=== PATIENT | female | born 1950 | race Caucasian/White ===

== ENCOUNTER 2024-04-30 18:13 | Inpatient (IN) | payer MEDICARE, BC, SELFPAY ==
[2024-04-30] VITALS (8 sets, daily range): BP systolic 98–133; BP diastolic 60–73; BMI 36.2; BMI 34.9
[2024-04-30] MEDS: MORPHINE SULFATE 4 MG IV ×2 (13:15→15:56)
[2024-04-30] MEDS: NSS 1000 IV ×2 (13:15→20:09)
[2024-04-30] MEDS: ZOFRAN 4 MG IV (13:15)
--- NOTE | 2024-04-30 13:18 | ED.GENMED ---
History of Present Illness
<AMRIT Zaragoza - Last Filed: 04/30/24 17:23>
General
Chief Complaint: Abdominal Pain
Source: patient and spouse
Exam Limitations: none
Time Seen by Provider: 04/30/24 12:53
Nursing documentation reviewed up to this point in time: agreed with
History of Present Illness
History of Present Illness:
Patient is a 74-year-old female who presents ER for evaluation abdominal pain and nausea vomiting. Patient reports she was awoken at 3 AM with abdominal pain. She has had persistent abdominal pain is vomited about 6�7 times.
She denies any diarrhea. She last moved her bowels yesterday.
She denies any associated fever or chills.
She has prior appendectomy in addition she had surgery on her muscles of her abdomen by plastic surgery done 3 years ago. No prior bowel surgery.
Past History
<AMRIT Zaragoza - Last Filed: 04/30/24 17:23>
Past History
ED Past Medical History: Asthma, Hypercholesterolemia, Psychiatric and Other (clarice, pud, ULCers)
ED Past Surgical History: Appendectomy, Gynecological (Tubel) and Other (hernia repair, 'tummy tuck')
Social History
Tobacco: Former smoker
Alcohol: Daily (Martini)
Drug: None
Personal:
Living: with family
Review of Systems
<AMRIT Zaragoza - Last Filed: 04/30/24 17:23>
Review of Systems
Allergies reviewed?: Yes
All Other Systems: ROS reviewed and negative except as documented in HPI and ROS
Constitutional: Reports no symptoms; Denies fever, fatigue or chills
Respiratory: Reports no symptoms
Cardiac: Reports no symptoms
ABD/GI: Reports abdominal pain, nausea and vomiting
: Reports no symptoms
Musculoskeletal: Reports no symptoms
Skin: Reports no symptoms
Neurological: Reports no symptoms
Psychiatric: Reports no symptoms
Phy Exam
<AMRIT Zaragoza - Last Filed: 04/30/24 17:23>
General Physical Exam
General Presentation: no apparent distress
General age: appears stated age
General Skin: warm and dry
General Habitus: normal
General Mental: alert
General Hydration: appears well hydrated
Cardiovascular Exam
Cardiovascular Exam: regular rate/rhythm, no murmur and normal peripheral pulses
Pulmonary Exam
Pulmonary Exam: lungs clear and no respiratory distress
Gastrointestinal Exam
Gastrointestinal Exam: soft and other (Abdomen appears firm distended on exam tender throughout)
Neurological Exam
Neurological Exam: alert and oriented x3
Musculoskeletal Exam
Musculoskeletal Exam: full ROM
Skin Exam
Skin Exam: normal color and warm/dry
Psychiatric Exam
Psychiatric Exam: normal mood/affect
Course
<AMRIT Zaragoza - Last Filed: 04/30/24 17:23>
Orders/Labs/Results
Orders:
Orders
04/30/24 12:48
IV Insert/Care/Rem.- Treatment PRN
Urinalysis Reflex To Culture Urgent
Date Specimen was Collected: 04/30/24
Time Specimen was Collected: 12:49
04/30/24 12:52
Basic Metabolic Panel Urgent
Complete Blood Count/With Diff Urgent
Lipase Urgent
04/30/24 13:09
CT Abd/Pel (IV only)-DH only Urgent
Comment:
Reason For Exam: sudden abd pain firm distended abdomen with n/v
Morphine Sulfate 4 mg IV NOW STA
04/30/24 13:10
0.9% Sodium Chloride 1000 ml [Nss] 1,000 ml IV BOLUS
Ondansetron Injectable [Zofran] 4 mg IV NOW STA
04/30/24 13:33
Comprehensive Metabolic Panel Stat
04/30/24 15:50
Morphine Sulfate 4 mg IV NOW STA
04/30/24 16:35
MRI Abdomen [MR Abdomen W/o & W Contrast] Routine
Comment:
Reason For Exam: with ERCP
Recent pill cam endoscopy?: No
Abnormal Lab Results
04/30/24 04/30/24
12:52 13:33
Absolute Lymphs (auto) 0.5 L 10^3/uL
(1.2-3.4)
Absolute Monos (auto) 0.0 L 10^3/uL
(0.1-0.6)
Neutrophils % 86.6 H %
(42.2-75.2)
Lymphocytes % 8.7 L %
(20.5-51.1)
Monocytes % 0.4 L %
(1.7-9.3)
BUN 21 H mg/dl 20 H mg/dl
(7-17) (7-17)
Glucose 132 H mg/dl 118 H mg/dl
(70-99) (70-99)
Total Bilirubin 2.5 H mg/dl
(0.2-1.3)
AST 1180 H* U/L
(14-36)
ALT 610 H* U/L
(0-35)
Alkaline Phosphatase 212 H U/L
(38-126)
Lipase > 4000 H* U/L
(23-300)
04/30/24 12:52
04/30/24 13:33
Vital Signs
Initial and Last Documented VS:
Initial Vital Signs
Temp Pulse Resp Pulse Ox
97.8 F 82 15 94
04/30/24 12:50 04/30/24 12:50 04/30/24 12:50 04/30/24 12:50
Last Documented Vital Signs
Temp Pulse Resp BP Pulse Ox
97.8 F 82 29 133/73 95
04/30/24 12:50 04/30/24 13:00 04/30/24 13:00 04/30/24 13:00 04/30/24 13:00
Video Tape Editor consulted with Physician
Video Tape Editor consulted with physician?: Yes
Name of Physician Consulted: Paul
<Derick Miller MD - Last Filed: 04/30/24 15:29>
Orders/Labs/Results
Orders:
Orders
04/30/24 12:48
IV Insert/Care/Rem.- Treatment PRN
Urinalysis Reflex To Culture Urgent
Date Specimen was Collected: 04/30/24
Time Specimen was Collected: 12:49
04/30/24 12:52
Basic Metabolic Panel Urgent
Complete Blood Count/With Diff Urgent
Lipase Urgent
04/30/24 13:09
CT Abd/Pel (IV only)-DH only Urgent
Comment:
Reason For Exam: sudden abd pain firm distended abdomen with n/v
Morphine Sulfate 4 mg IV NOW STA
04/30/24 13:10
0.9% Sodium Chloride 1000 ml [Nss] 1,000 ml IV BOLUS
Ondansetron Injectable [Zofran] 4 mg IV NOW STA
04/30/24 13:33
Comprehensive Metabolic Panel Stat
04/30/24 15:50
Morphine Sulfate 4 mg IV NOW STA
04/30/24 16:35
MRI Abdomen [MR Abdomen W/o & W Contrast] Routine
Comment:
Reason For Exam: with ERCP
Recent pill cam endoscopy?: No
Abnormal Lab Results
04/30/24 04/30/24
12:52 13:33
Absolute Lymphs (auto) 0.5 L 10^3/uL
(1.2-3.4)
Absolute Monos (auto) 0.0 L 10^3/uL
(0.1-0.6)
Neutrophils % 86.6 H %
(42.2-75.2)
Lymphocytes % 8.7 L %
(20.5-51.1)
Monocytes % 0.4 L %
(1.7-9.3)
BUN 21 H mg/dl 20 H mg/dl
(7-17) (7-17)
Glucose 132 H mg/dl 118 H mg/dl
(70-99) (70-99)
Total Bilirubin 2.5 H mg/dl
(0.2-1.3)
AST 1180 H* U/L
(14-36)
ALT 610 H* U/L
(0-35)
Alkaline Phosphatase 212 H U/L
(38-126)
Lipase > 4000 H* U/L
(23-300)
04/30/24 12:52
04/30/24 13:33
Vital Signs
Initial and Last Documented VS:
Initial Vital Signs
Temp Pulse Resp Pulse Ox
97.8 F 82 15 94
04/30/24 12:50 04/30/24 12:50 04/30/24 12:50 04/30/24 12:50
Last Documented Vital Signs
Temp Pulse Resp BP Pulse Ox
97.8 F 82 29 133/73 95
04/30/24 12:50 04/30/24 13:00 04/30/24 13:00 04/30/24 13:00 04/30/24 13:00
<AMRIT Zaragoza - Last Filed: 04/30/24 17:23>
MDM/Problems Addressed
Differential Diagnosis Includes:
Not limited to biliary colic pancreatitis diverticulitis
MDM/Problems Addressed:
Patient is a 73-year-old female who presented with nausea vomiting abdominal pain since 3 AM. Patient's abdomen is very firm tender at the upper abdomen afebrile. Patient's white count is normal hemoglobin stable lipase however elevated greater
than 4000 with elevated LFTs. CAT scan shows right upper quadrant phonatory changes probable pancreatitis cannot entirely exclude duodenitis. pt was medicated for pain given fluids nausea medicine. Stable vital signs patient mid to the hospital
service. Patient evaluated the ED physician
<AMRIT Zaragoza - Last Filed: 04/30/24 17:23>
*Radiology
Radiology exam reviewed: radiology read reviewed
*Pulse Oximetry
Patient hypoxic: no
*Critical Care Note
Total Time (30-74mins, 75-104mins- exclusive of procedures): Not Applicable
ED Attending Note
<AMRIT Zaragoza - Last Filed: 04/30/24 17:23>
-
Portions of this chart may have been created with voice recognition software.� Occasional wrong word or��sound alike� substitutions may have occurred due to the inherent limitations of voice recognition software.
<Derick Mliler MD - Last Filed: 04/30/24 15:29>
ED Attending Note
Patient seen and examined by attending physician: Yes
I performed the substantive portion of visit, reviewed & personally made and approve the management plan that is documented in note by myself or DUDLEY.: Yes
ED Attending Note:
74-year-old female sudden onset of abdominal pain about 3 AM. Some nausea and vomiting. Some back pain. No history of same. History of sepsis secondary to hernia surgery. No fever.
Patient with high cholesterol and triglycerides. Patient does have her gallbladder. Patient drinks a martini per day.
On exam patient is nontoxic-appearing but uncomfortable. She is warm and dry. Vital signs stable. Regular rate and rhythm. Lungs clear and equal. Abdomen mildly distended. Decreased breath sounds diffusely. Diffuse tenderness mostly in the
upper quadrants.
Lipase greater than 4000. CT scan pending. Currently has pancreatitis all of the above etiologies are in the differential including triglycerides, common duct stone, alcohol related.
1530.... Multiple attempts to get over to CAT scan. GI was already consulted.
Discharge Plan
Departure
Patient Disposition: Admit
Date of Disposition: 04/30/24
Time of Disposition: 17:19
Admit to doctor: hospitliast
Presentation/result/management discussed w/ accepting MD/DO: Hospitalist
Patient with high blood pressure during this ER visit?: No
Condition: Fair
Covid-19: Not Applicable
Discharge Problem:
Acute pancreatitis
Prescriptions:
No Action
rabeprazole [AcipHex] 20 MG tablet,delayed release (DR/EC)
20 mg PO DAILY
rosuvastatin 10 MG tablet
10 mg PO HS
ascorbic acid (vitamin C) [Vitamin C] 500 MG tablet
0.5 tab PO DAILY
lorazepam 1 MG tablet
1 mg PO TIDPRN PRN (Reason: sleep)
bupropion HCl 300 MG tablet extended release 24 hr
300 mg PO DAILY
cholecalciferol (vitamin D3) 2,000 UNITS tablet
2,000 units PO DAILY
biotin 1 MG capsule
1 mg PO DAILY
PreserVision AREDS-2 1 EACH capsule
1 ea PO DAILY
L.acidoph, paracasei,B. lactis 1 EACH capsule
1 ea PO DAILY
prednisolone acetate 1 % Drops,Suspension
1 drp LEFT EYE DAILY
dorzolamide-timolol 22.3-6.8 mg/mL Drops
1 drp BOTH EYES BID
Referrals:
Ivan Biswas MD [Family Provider] -
Interventions
Interventions:
*Risk Screen - Suicide Last Done: 04/30/24 12:50
*General Assessment Last Done: 04/30/24 12:50
*Neglect/Abuse Screening Last Done: 04/30/24 12:50
ED- Fall Risk Assessment Last Done: 04/30/24 12:55
[place]-[facility] Assessment Last Done: 04/30/24 12:55
Discharge Date and Time
Print Language: BOLIVIAN
[2024-04-30 13:23] LABS: Blood Urea Nitrogen 21 mg/dl (7-17); Calcium 9.7 mg/dl (8.4-10.2); Carbon Dioxide 25 mmol/L (22-30); Chloride 102 mmol/L (98-107); Estimated Creatinine Clearance 97 ml/min; Glucose 132 mg/dl (70-99); Sodium 142 mmol/L (135-145); eGFR > 60.00
[2024-04-30 13:29] LABS: Lipase > 4000 U/L (23-300)
[2024-04-30 13:39] LABS: Hematocrit 42.9 % (37.0-47.0); Hemoglobin 14.3 g/dL (12.0-16.0); Mean Corp Hgb Conc. 33.3 g/dL (33.0-37.0); Mean Corpuscular Hgb 30.4 pg (27.0-31.0); Mean Corpuscular Volume 91.3 fL (81.0-99.0); Mean Platelet Volume 9.6 fL (7.4-10.4); Platelet Count 198 10^3/uL (130-400); Red Cell Dist. Width 13.5 % (11.5-14.5); White Blood Cell Count 5.5 10^3/uL (4.8-10.8)
[2024-04-30 14:14] LABS: ALT (SGPT) 610 U/L (0-35); AST (SGOT) 1180 U/L (14-36); Albumin 4.4 g/dl (3.5-5.0); Alkaline Phosphatase 212 U/L (38-126); Blood Urea Nitrogen 20 mg/dl (7-17); Calcium 9.3 mg/dl (8.4-10.2); Carbon Dioxide 23 mmol/L (22-30); Chloride 104 mmol/L (98-107); Estimated Creatinine Clearance 97 ml/min; Glucose 118 mg/dl (70-99); Potassium 3.5 mmol/L (3.5-5.1); Sodium 144 mmol/L (135-145); Total Bilirubin 2.5 mg/dl (0.2-1.3); eGFR > 60.00
[2024-04-30 15:06] LABS: % Basophils 0.7 % (0-2); % Eosinophils 3.4 % (0-6); % Immature Granulocytes 0.2 % (0-0.5); % Lymphocytes 8.7 % (20.5-51.1); % Monocytes 0.4 % (1.7-9.3); % Neutrophils 86.6 % (42.2-75.2); Absolute Eosinophils 0.2 10^3/uL (0-0.7); Absolute Lymphocytes 0.5 10^3/uL (1.2-3.4); Absolute Neutrophils 4.8 10^3/uL (1.4-6.5); Nucleated Red Blood Cells % 0 %
--- NOTE | 2024-04-30 15:50 | CON.GI ---
Addendum entered and electronically signed by Brennan Sahni MD 04/30/24 17:55:
I saw and examined the patient.
The PA's note was reviewed and I agree with the note.
Comment:
74 year old female with recent shoulder surgery and daily NSAID use (for past 1.5 month) who p/w abdominal pain with associated nausea/vomiting and lipase >4000.
Impression / Rec:
1. Abdominal pain/nausea/vomiting - lipase > 4000. CT showed probable pancreatitis, rounded fluid attenuating lesions in the duodenum which represent possible duodenal diverticula versus contained perforation. The CT reviewed by me. Prior CT
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 LFT elevated in mixed pattern.
Although I suspect she likely has acute pancreatitis, duodenal perforation cannot be excluded given her significant NSAID hx. Agree with MRI/MRCP for further eval, should also have surgery on board. PPI.
Original Note:
Consultation
-
Date/Time Consultation Requested: 04/30/24 1500
Date/Time Consultation Performed: 04/30/24 1600
Requesting Provider: AMRIT Peguero
Performing Provider: AMRIT Lewis
Reason for Consultation: elevated LFT's and lipase/ abdominal pain
Medical History
Chief Complaint / HPI
Chief Complaint: abdominal pain with nasuea and vomiting
History of Present Illness:
Pt is a 74yo with hx obesity, RHONDA, asthma, hypercholesterolemia, PUD, IBS, colon polyps, prior appe, hernia repair, abdominoplasty with recent multiple surgeries for retinal detachment and shoulder surgery on multiple Ibuprofen per day with onset
of abdominal pain with nausea and vomiting bile . On admission noted with bili 2.5, AST 1180, ALT 610, alk phos 212 and lipase >4000.
In reviewing with patient and spouse noted with onset of severe pain at 3 AM 04/30. She denies hx similar pain. No recent wt loss or hx GPL2 use. No anticoagulation use prior to admission. She otherwise has chronic GERD on Aciphex daily denies
dysphagia, diarrhea, constipation, or rectal bleeding.
Past Medical History
Past Medical History: Asthma, Hypercholesterolemia and Other (RHONDA, PUD, ulcers, obesity, colon polyps, IBS)
Past Surgical History: Appendectomy, Gynecological (tubal ), Orthopedic (recent shoulder surgery ) and Other (tummy tuck, ventral hernia repair, recent 7 surgeries for retinal detachment)
Social History
Tobacco: Former Smoker (quit 1998)
Alcohol: Occasional (social 2 drinks every other day )
Drug: None
Personal:
Living: With Family
Employment: Retired
Family History
Family History: Other (no family hx colon Ca or polyps )
Allergies / Home Medications
Allergy/AdvReac Type Severity Reaction Status Date / Time
levofloxacin [From Levaquin] AdvReac Unknown Verified 05/04/23 11:45
shrimp Allergy Anaphylaxis Uncoded 05/04/23 11:45
�Medication �Instructions �Recorded
rabeprazole 20 mg tablet,delayed 20 mg PO DAILY Gastrointestinal 11/04/10
release (AcipHex) issue
rosuvastatin 10 mg tablet 10 mg PO HS High cholesterol 11/04/10
L.acidoph, paracasei,B. lactis 10 1 ea PO DAILY Supplement 08/03/20
billion cell capsule
ascorbic acid (vitamin C) 500 mg 0.5 tab PO DAILY Supplement 08/03/20
tablet (Vitamin C)
biotin 1 mg capsule 1 mg PO DAILY Supplement 08/03/20
bupropion HCl 300 mg 24 hr tablet, 300 mg PO DAILY Mental 08/03/20
extended release Health/Anxiety
cholecalciferol (vitamin D3) 50 2,000 units PO DAILY Supplement 08/03/20
mcg (2,000 unit) tablet
lorazepam 1 mg tablet 1 mg PO TIDPRN PRN sleep 08/03/20
vit C 250 mg-vit E 90 mg-zinc 40 1 ea PO DAILY Supplement 08/03/20
mg-copper 1 [id number]
capsule (PreserVision AREDS-2)
dorzolamide 22.3 mg-timolol 6.8 1 drp BOTH EYES BID Eye Condition 04/30/24
mg/mL eye drops
prednisolone acetate 1 % eye 1 drp LEFT EYE DAILY Eye Condition 04/30/24
drops,suspension
Review of Systems
-
History Source: Patient and Family
Constitutional: Reports Weight Gain (with recent sedentary lifestyle with shoulder surgery )
EENT: Reports No Symptoms
Respiratory: Reports Trouble Breathing (with steps )
Abdomen/GI: Reports Abdominal Pain, Nausea and Vomiting
: Reports No Symptoms
Musculoskeletal: Reports Other (recent pain with shoulder surgery )
Skin: Reports No Symptoms
Neurological: Reports Weakness
Endocrine: Reports No Symptoms
Hematologic/Lymphatic: Reports No Symptoms
Vital Signs
Temp Pulse Resp BP Pulse Ox
97.8 F 82 29 133/73 95
04/30/24 12:50 04/30/24 13:00 04/30/24 13:00 04/30/24 13:00 04/30/24 13:00
Physical Exam
Exam
General: Well Developed and Well Nourished
HEENT: Normocephalic and Other
Respiratory: Clear
Cardiac: Regular Rhythm
GI: Soft, Non Distended and Tender (diffuse worse epigastric area )
Musculoskeletal: No Clubbing and No Cyanosis
Skin: Warm and Dry
Neuro: Awake, Alert and AO x 3
Psych: Calm
Results
WBC 5.5 10^3/uL (4.8-10.8) 04/30/24 12:52
Hgb 14.3 g/dL (12.0-16.0) 04/30/24 12:52
Hct 42.9 % (37.0-47.0) 04/30/24 12:52
MCV 91.3 fL (81.0-99.0) 04/30/24 12:52
Plt Count 198 10^3/uL (130-400) 04/30/24 12:52
Absolute Neuts (auto) 4.8 10^3/uL (1.4-6.5) 04/30/24 12:52
Sodium 144 mmol/L (135-145) 04/30/24 13:33
Potassium 3.5 mmol/L (3.5-5.1) 04/30/24 13:33
Chloride 104 mmol/L (98-107) 04/30/24 13:33
Carbon Dioxide 23 mmol/L (22-30) 04/30/24 13:33
BUN 20 mg/dl (7-17) H 04/30/24 13:33
Creatinine 0.6 mg/dL (0.6-1.0) 04/30/24 13:33
Calcium 9.3 mg/dl (8.4-10.2) 04/30/24 13:33
Total Bilirubin Cancelled 04/30/24 13:39
AST Cancelled 04/30/24 13:39
ALT Cancelled 04/30/24 13:39
Alkaline Phosphatase Cancelled 04/30/24 13:39
Lipase > 4000 U/L (23-300) H* 04/30/24 12:52
Diagnostic Image Results:
Prior GI Procedures:
EGD: hx EGD 8 years ago with PUD last 2 years ago for GERD with Dr. Cisneros in [facility]
Colonoscopy: last 2 years with polyps
Assessment / Plan
-
Pt is a 74yo with hx obesity, RHONDA, asthma, hypercholesterolemia, PUD, IBS, colon polyps, prior appe, hernia repair, abdominoplasty with recent multiple surgeries for retinal detachment and shoulder surgery on multiple Ibuprofen per day with onset
of abdominal pain with nausea and vomiting bile . On admission noted with bili 2.5, AST 1180, ALT 610, alk phos 212 and lipase >4000.
-epigastric abdominal pain
-marked elevated LFT's and lipase
-increased NSAID use with recent shoulder surgery
other med Problems:
-hx PUD
-hx GERD on Aciphex prior to admission
-colon polyps
-appe
-hernia repair
-abdominoplasty
-retinal detachment with recent multiple surgeries without last year
-RHONDA
-asthma
-hypercholesterolemia
PLAN:
etiology of abdominal pain related to biliary/pancreatic etiology CBD stone, pancreatitis, ulcer related with increased NSAID use vs other
CT pending await reading
will check MRI with MRCP if + may need ERCP
s/p IV bolus given in ER-- will need aggressive iVF replacement
trend labs
cont PPI with hx GERD
NPO
pain control
NSAID avoidance
family updated
-
-
Thank you for consultation and allowing me to participate in the patient's care. Please call the [facility] GI physician during the after hours with any questions or concerns.
--- NOTE | 2024-04-30 17:47 | HPS.HSE ---
Family Physician
-
Family Physician: Ivan Biswas MD
Chief Complaint
-
abdominal pain
History of Present Illness
74-year-old female past medical history of asthma, obstructive sleep apnea, hypercholesteremia, peptic ulcer disease, anxiety, IBS, colon polyps, retinal detachment, presenting with epigastric abdominal pain and nausea and episode of vomiting with
bile starting today. Pain radiates to her back. She has chills but no fever. She recently had rotator cuff surgery and has been taking 10 Advil's a day. She drinks 2 drinks of alcohol per day. She is a former smoker. She denies ever having
pancreatitis before or any gallbladder problems. She had pain like this when she had peptic ulcer previously.
Medical History
Past Medical History
Past Medical History: Reports Other (asthma, obstructive sleep apnea, hypercholesteremia, peptic ulcer disease, anxiety, IBS, colon polyps, retinal detachment)
Past Surgical History: Reports Other (Appendectomy, Gynecological (tubal ), Orthopedic (recent shoulder surgery ) and Other (tummy tuck, ventral hernia repair, recent 7 surgeries for retinal detachment))
Social History
Tobacco: Former Smoker
Alcohol: Daily
Drug: None
Family History
Family History: Not pertinent
Allergies / Home Medications
Allergies reflects when Allergies were last updated in [facility].
Home Medications with original date entered in [facility]
Allergy/Medication List:
Allergies
Allergy/AdvReac Type Severity Reaction Status Date / Time
levofloxacin [From Levaquin] AdvReac Unknown Verified 05/04/23 11:45
shrimp Allergy Anaphylaxis Uncoded 05/04/23 11:45
Home Medications
rabeprazole 20 mg tablet,delayed release (AcipHex) 20 mg PO DAILY Gastrointestinal issue 11/04/10
rosuvastatin 10 mg tablet 10 mg PO HS High cholesterol 11/04/10
L.acidoph, paracasei,B. lactis 10 billion cell capsule 1 ea PO DAILY Supplement 08/03/20
ascorbic acid (vitamin C) 500 mg tablet (Vitamin C) 0.5 tab PO DAILY Supplement 08/03/20
biotin 1 mg capsule 1 mg PO DAILY Supplement 08/03/20
bupropion HCl 300 mg 24 hr tablet, extended release 300 mg PO DAILY Mental Health/Anxiety 08/03/20
cholecalciferol (vitamin D3) 50 mcg (2,000 unit) tablet 2,000 units PO DAILY Supplement 08/03/20
lorazepam 1 mg tablet 1 mg PO TIDPRN PRN sleep 08/03/20
vit C 250 mg-vit E 90 mg-zinc 40 mg-copper 1 [id number] capsule (PreserVision AREDS-2) 1 ea PO DAILY Supplement 08/03/20
dorzolamide 22.3 mg-timolol 6.8 mg/mL eye drops 1 drp BOTH EYES BID Eye Condition 04/30/24
prednisolone acetate 1 % eye drops,suspension 1 drp LEFT EYE DAILY Eye Condition 04/30/24
Review of Systems
-
History Source: Patient
Constitutional: Reports No Symptoms
EENT: Reports No Symptoms
Respiratory: Reports No Symptoms
Cardiac: Reports No Symptoms
Abdomen/GI: Reports See HPI
: Reports No Symptoms
Musculoskeletal: Reports No Symptoms
Skin: Reports No Symptoms
Neurological: Reports No Symptoms
Endocrine: Reports No Symptoms
Hematologic/Lymphatic: Reports No Symptoms
Psych: Reports No Symptoms
Physical Exam
Vital Signs
Vital Signs
Temp Pulse Resp BP Pulse Ox
97.8 F 82 29 133/73 95
04/30/24 12:50 04/30/24 13:00 04/30/24 13:00 04/30/24 13:00 04/30/24 13:00
Physical Exam
General: Well Developed, Well Nourished and No Apparent Distress
HEENT: NormoCephalic, Moist mucous membranes and Atraumatic
Respiratory: Clear
Cardiac: S1/S2 and Regular Rhythm; No Murmur or Rub
GI: Soft, Normal Bowel Sounds, Tender and Distended; No Organomegaly
Rectal: Deferred by Provider
Musculoskeletal: No Clubbing, No Cyanosis and No Edema
Skin: No Rash
Neuro: Nonfocal/grossly intact
Laboratory Results
-
04/30/24 12:52
04/30/24 13:33
Laboratory Results
Total Bilirubin Cancelled 04/30/24 13:39
AST Cancelled 04/30/24 13:39
ALT Cancelled 04/30/24 13:39
Alkaline Phosphatase Cancelled 04/30/24 13:39
Lipase > 4000 U/L (23-300) H* 04/30/24 12:52
Data Reviewed
-
Lab Data: Labs Reviewed by me
Old Records: Reviewed
Impression/Plan
-
IMPRESSION:
PLAN:
# Likely biliary pancreatitis versus peptic ulcer disease secondary to NSAIDs
# Transaminitis
# History of GERD/peptic ulcer disease
-Lipase 4000
-CT abdomen pelvis shows right upper quadrant inflammatory changes, probable pancreatitis, cannot exclude duodenitis
-N.p.o.
-IV fluids
-Protonix 40 twice daily
-Hold NSAIDs
-Check MRI/MRCP
-Pain control with Dilaudid as needed
Asthma
Obstructive sleep apnea
-Continue CPAP
Hypercholesterolemia
-Hold statin
IBS
Anxiety
-Continue bupropion
-Continue Ativan
Colon polyps
Retinal detachment status post surgeries
Full code
DVT prophylaxis heparin
N.p.o.
--- NOTE | 2024-04-30 18:27 | W.PN.UPDATE ---
Update Note
Progress Note Update
General surgery consulted by hospitalist at 6:20pm re: c/f 'duodenal perf' on CT based on reported TTP/'rigidity' on exam.
Vitals staple, BP soft, HR 99. No leukocytosis. Lipase >4K, LFTs also elevated.
I reviewed the CT which demonstrates significant inflammation in the head of the pancreas with some stranding extending to the hepatic flexure. There is also some inflammation in the tail of the pancreas/splenic flexure with sparing of the mid body.
There is no free air. agree with rads read.
A/P: 74F with severe pancreatitis causing secondary duodenitis and likely some obstruction of the biliary tree.
strict NPO, convert to IV or rectal forms
IVFs can start LR at 150 but titrate to UOP 0.5cc/kg/hr
I/Os
No evidence of infection at this time, would hold off on abx
General surgery will see and evaluate this patient in the morning
Please call if patients clinical status changes.
POC d/w hospitalist.
[2024-04-30] MEDS: ATIVAN 1 MG PO (20:23)
[2024-04-30] MEDS: PROTONIX IV 40 MG IV (20:23)
[2024-04-30] MEDS: NSS (PRESERVATIVE FREE) 10 ML IV (20:23)
[2024-04-30] MEDS: DILAUDID 0.5 MG IV (20:24)
[2024-04-30] MEDS: HEPARIN 5000 UNITS SC (20:24)
[2024-04-30] MEDS: LR 1000 IV (20:55)
[2024-04-30] MEDS: COSOPT EYE DROPS 1 DROP BOTH EYES (20:56)
[2024-05-01] MEDS: TORADOL 15 MG IV (00:13)
[2024-05-01] MEDS: DILAUDID 0.5 MG IV ×2 (04:52→11:58)
[2024-05-01] MEDS: ZOFRAN 4 MG IV ×2 (04:58→11:57)
[2024-05-01 06:54] LABS: Hematocrit 36.2 % (37.0-47.0); Hemoglobin 12.3 g/dL (12.0-16.0); Mean Corpuscular Hgb 31.7 pg (27.0-31.0); Mean Corpuscular Volume 93.3 fL (81.0-99.0); Mean Platelet Volume 10.3 fL (7.4-10.4); Platelet Count 153 10^3/uL (130-400); Red Blood Cell Count 3.88 10^6/uL (4.20-5.40); White Blood Cell Count 18.4 10^3/uL (4.8-10.8)
[2024-05-01 07:00] VITALS: BP 115/69
[2024-05-01 07:14] LABS: ALT (SGPT) 491 U/L (0-35); AST (SGOT) 658 U/L (14-36); Albumin 3.7 g/dl (3.5-5.0); Alkaline Phosphatase 123 U/L (38-126); Blood Urea Nitrogen 24 mg/dl (7-17); Calcium 8.4 mg/dl (8.4-10.2); Carbon Dioxide 27 mmol/L (22-30); Chloride 102 mmol/L (98-107); Estimated Creatinine Clearance 63 ml/min; Glucose 118 mg/dl (70-99); Sodium 139 mmol/L (135-145); eGFR > 60.00
[2024-05-01 07:51] LABS: Hepatitis C Antibody Negative (Negative)
[2024-05-01 07:57] VITALS: BP 115/69
[2024-05-01 08:00] LABS: Band Neutrophils 12 % (0-3); Lymphocytes 14 % (20-51); Metamyelocytes 3 % (-); Platelets Checked Yes; Segmented Neutrophils 70 % (42-75)
[2024-05-01 08:03] LABS: Normal RBC Morphology Yes; Total Cells Counted 100
[2024-05-01 08:28] LABS: Lipase > 4000 U/L (23-300)
--- NOTE | 2024-05-01 08:42 | CON.GS ---
Addendum entered and electronically signed by Priyank Dennis MD 05/01/24 15:41:
Patient seen in follow-up this afternoon for consultation with nurse practitioner.
Patient's at bedside.
HPI: 74-year-old female presenting secondary to acute onset of abdominal pain. Sudden onset awaking from sleep yesterday morning rapidly becoming severe and bandlike in the upper abdomen but also generalized and some radiation into the back.
Recurrent nausea and vomiting. No similar episodes like this in the past. History notable for 2 martinis daily and 8 to 10 tablets of Advil daily for recent left rotator cuff surgery for which she is still having considerable discomfort and pain.
Has had continued progressive abdominal distention which is uncomfortable as well. No bowel movement in 3 days and has not passed flatus since the onset of her symptoms.
Medical history notable for asthma, PUD, IBS, RHONDA and hypercholesterolemia
Surgical history of appendectomy, x 2, tubal, umbilical incisional hernia repairs.
AFVSS (last vitals 7 AM)
No acute distress but acutely ill-appearing and uncomfortable.
Abdomen tensely distended and generalized tenderness with voluntary guarding.
White blood cell count 18 with bandemia. Hematocrit 36.2. Lipase remains greater than 4000. Bilirubin 2.0, AST 658, ALT 491, alkaline phosphatase normal.
CT abdomen/pelvis imaging personally reviewed as well as radiologist report. Right upper quadrant inflammatory changes particular around the region of the head of the pancreas. Soft tissue stranding around the region as well. 3 rounded
fluid-filled attenuated structures around the region of the second and third portion of the duodenum which seem more consistent with duodenal diverticula. No free air. No organizing fluid collections.
Upper GI 05/01/2024 personally reviewed as well as radiologist report: 3 large duodenal diverticulum corresponding to CT imaging without perforation. Esophagus, stomach and duodenum otherwise unremarkable.
MRI imaging personally reviewed as well as radiologist report: No gallstones, gallbladder appearance unremarkable. No biliary ductal dilation. No strictures or evidence of choledocholithiasis. Edema and stranding surrounding the pancreas without
fluid collections. No pancreatic masses.
Assessment and plan: 74-year-old female with acute pancreatitis likely due to chronic alcohol use as no gallstones, sludge or choledocholithiasis visualized on MRI imaging.
Initial CT imaging concerning for possible contained duodenal perforations prompting surgical consultation however follow-up upper GI contrast imaging confirms duodenal diverticula.
Advised patient and her of radiographic imaging studies and workup.
Continue with aggressive IV fluid resuscitation in setting of severe pancreatitis
Bowel rest
Analgesics -adjusted to improve pain control
Would avoid NSAIDs
PPI
As there are no gallstones on imaging and duodenal diverticulum without perforation confirmed on upper GI no role for acute surgical intervention. Will follow peripherally and defer to primary service and GI regarding management of presumably EtOH
mediated pancreatitis. Any of the patient's or her 's questions were fully addressed. Thank you
Original Note:
Medical History
-
Chief Complaint: abdominal pain
History of Present Illness:
Ms Goldman is a 74 yo female with a h/o PUD on halfway ppi, x2, hernia repair of incisional/umbilical hernias, appendectomy, tubal ligation, recent left rotator cuff surgery with daily Advil [id number] and 2 martinis who presents with
epigastric abdominal pain which began suddenly around 3am yesterday morning causing her to present for evaluation via EMS. She notes associated nausea and vomiting of bilious emesis. She notes that with analgesics she does feel a bit better but
otherwise the pain is no better. She is markedly tender to the epigastric area with involuntary guarding with generalized tenderness to the bilateral upper quadrants, distention present. Her last BM was 2 days ago and she notes no passage of flatus
in over 24 hours.
Past Medical History
Past Medical History: Asthma, Hypercholesterolemia and Other (PUD, IBS, RHONDA)
Past Surgical History: Appendectomy (at age 16), (x2), Gynecological (tubal ligation), Hernia Repair (umbilical and incisional), Orthopedic (left rotator cuff 12/2023 in [place], knee surgery, carpal tunnel release, lumbar ) and Other
(tummy tuck, retinal surgery for detachment x7)
Social History
Tobacco: Former Smoker (quit 1998)
Alcohol: Daily (2 martinis a night)
Personal:
Living: With Family
Employment: Retired
Family History
Family History: Reviewed & Not Pertinent
Allergies / Home Medications
Allergy/AdvReac Type Severity Reaction Status Date / Time
levofloxacin [From Levaquin] Allergy 'can't Verified 04/30/24 19:55
sleep'
shrimp Allergy Anaphylaxis Verified 04/30/24 19:55
�Medication �Instructions �Recorded �Confirmed �Type
rabeprazole 20 mg tablet,delayed 20 mg PO DAILY Gastrointestinal 11/04/10 04/30/24 History
release (AcipHex) issue
rosuvastatin 10 mg tablet 10 mg PO HS High cholesterol 11/04/10 04/30/24 History
L.acidoph, paracasei,B. lactis 10 1 ea PO DAILY Supplement 08/03/20 04/30/24 History
billion cell capsule
ascorbic acid (vitamin C) 500 mg 0.5 tab PO DAILY Supplement 08/03/20 04/30/24 History
tablet (Vitamin C)
biotin 1 mg capsule 1 mg PO DAILY Supplement 08/03/20 04/30/24 History
bupropion HCl 300 mg 24 hr tablet, 300 mg PO DAILY Mental 08/03/20 04/30/24 History
extended release Health/Anxiety
cholecalciferol (vitamin D3) 50 2,000 units PO DAILY Supplement 08/03/20 04/30/24 History
mcg (2,000 unit) tablet
lorazepam 1 mg tablet 1 mg PO TIDPRN PRN sleep 08/03/20 04/30/24 History
vit C 250 mg-vit E 90 mg-zinc 40 1 ea PO DAILY Supplement 08/03/20 04/30/24 History
mg-copper 1 [id number]
capsule (PreserVision AREDS-2)
dorzolamide 22.3 mg-timolol 6.8 1 drp BOTH EYES BID Eye Condition 04/30/24 04/30/24 History
mg/mL eye drops
prednisolone acetate 1 % eye 1 drp LEFT EYE DAILY Eye Condition 04/30/24 04/30/24 History
drops,suspension
Review of Systems
-
History Source: Patient and Family
All other systems: Negative unless noted
A 10 point review of systems was completed, and was negative except as per HPI.
Physical Exam
Vital Signs
Temp Pulse Resp BP Pulse Ox
99.1 F 82 18 115/69 94
05/01/24 07:00 05/01/24 07:00 05/01/24 07:00 05/01/24 07:00 05/01/24 07:00
04/30/24 05/01/24 05/02/24
06:59 06:59 06:59
Actual Weight 95.073 kg
Body Mass Index (BMI) 34.9
Lab Results
05/01/24 06:32
05/01/24 06:32
WBC 18.4 10^3/uL (4.8-10.8) H 05/01/24 06:32
Hgb 12.3 g/dL (12.0-16.0) 05/01/24 06:32
Hct 36.2 % (37.0-47.0) L 05/01/24 06:32
Plt Count 153 10^3/uL (130-400) D 05/01/24 06:32
Abs Immat Gran (auto) 0.0 10^3/uL (0-0.05) 04/30/24 12:52
Neutrophils % 86.6 % (42.2-75.2) H 04/30/24 12:52
Physical Exam
General: Well Developed and Well Nourished
HEENT: Moist Mucous Membranes
Respiratory: Non Labored Respirations
GI: Soft, Tender (epigastric severely tender with involuntary guarding, BLUQ tender) and Distended
Skin: Warm and Dry
Neuro: Awake, Alert and AO x 3
Psych: Calm
Data Reviewed
-
CT Scan: Image Personally Visualized and interpreted, Report Reviewed by me, Discussed with Physician, Discussed with Patient and Discussed with Family
Labs: Labs Reviewed by me, Discussed with Physician, Discussed with Patient and Discussed with Family
Old Records: Reviewed
Assessment / Plan
-
Ms Goldman is a 74 yo female with a h/o PUD, x2, hernia repair of incisional/umbilical hernias, appendectomy, tubal ligation, recent left rotator cuff surgery with daily Advil [id number] and 2 martinis who presents with epigastric abdominal
pain which began suddenly around 3am yesterday morning causing her to present for evaluation. ABD is distended on exam with marked epigastric tenderness/guarding. CT imaging with severe pancreatitis with correlating laboratory findings (lipase >4k)
with secondary duodenitis on imaging. LFT's elevated but trending down, lipase remains >4k. Leukocytosis present. AFVSS
--Keep NPO for testing
--UGI today to evaluate duodenal findings further
--MRCP pending
--Analgesics/antiemetics as needed
--No emergent surgery planned at this time, further surgical recommendations to follow based on imaging findings
--Medical management as per primary team
[2024-05-01] MEDS: LR 1000 IV ×3 (08:54→17:48)
[2024-05-01] MEDS: NSS (PRESERVATIVE FREE) 10 ML IV ×2 (08:55→20:02)
[2024-05-01] MEDS: PROTONIX IV 40 MG IV ×2 (08:55→20:02)
[2024-05-01] MEDS: OCUVITE SOFTGEL 1 CAP PO (08:56)
[2024-05-01] MEDS: WELLBUTRIN XL (24 hour extended release) 300 MG PO (08:56)
[2024-05-01] MEDS: VITAMIN C 250 MG PO (08:56)
[2024-05-01] MEDS: HEPARIN 5000 UNITS SC ×2 (08:56→20:02)
[2024-05-01] MEDS: PRED FORTE 1% EYE DROPS 1 DROP LEFT EYE (08:56)
[2024-05-01] MEDS: ATIVAN 1 MG PO ×2 (08:56→21:05)
[2024-05-01] MEDS: VITAMIN D3 (cholecalciferol) 50 MCG PO (08:56)
[2024-05-01] MEDS: VISBIOME 1 CAP PO (08:56)
[2024-05-01] MEDS: COSOPT EYE DROPS 1 DROP BOTH EYES ×2 (08:57→20:02)
--- NOTE | 2024-05-01 09:03 | W.PN.GI.CBS2 ---
Today's Communication / Plan
-
New leukocytosis with bandemia, check blood cx, start zosyn. Repeat afternoon labs. Further imaging pending
Assessment / Plan
-
Kalie is a 74-year-old female with history of obesity, RHONDA, asthma, hyperlipidemia, peptic ulcer disease, IBS, colon polyps, history of abdominoplasty, recent surgery for retinal detachment and shoulder surgery with regular NSAID use presents
with acute onset abdominal pain with associated nausea and bilious emesis.
CT on admission showed probable pancreatitis, rounded fluid attenuating lesions in the duodenum which represent possible duodenal diverticula which was seen on prior imaging versus contained perforation. Elevated liver enzymes in a mixed pattern,
which improved on today's labs, lipase over 4000. She is significantly tender to palpation on exam, surgery consulted given still some concern for possible perforation however, her presentation could certainly be consistent with pancreatitis.
WBC 5.5 --> 18.4
BUN 21 --> 20 -->24
Tbili 2.5 --> 2
AST 118 --> 658
ALT 610-->491
Alk phos 212 --> 123
Lipase >4,000, >4,000
#Abdominal Pain likely 2/2 acute pancreatitis, however, still concern for duodenal perforation in setting of heavy NSAID use and hx of PUD
-UGI planned for better evaluate the small bowel
-MRI/MRCP pending
-Lipase >4,000 x2
-BUN rising, 24 today, currently getting LR @ 150 cc/hr, will give 500 cc bolus
-New leukocytosis with bandemia, check blood cultures stat, start zosyn
Subjective
Subjective
Date of Service: May 01, 2024
Kalie seen in follow-up today, reports still having significant pain, felt her pain medication was adequately controlling things yesterday however overnight had an increase in pain and distention. Reports she has not moved her bowels in a few
days.
Morning labs show new leukocytosis, white count of 18.4 with bandemia. Tmax 99.1 in last 24 hours.
Objective
Data Reviewed
Laboratory Data:
Laboratory Results
05/01/24 06:32
05/01/24 06:32
Laboratory Results
Total Bilirubin 2.0 mg/dl (0.2-1.3) H 05/01/24 06:32
AST 658 U/L (14-36) H* 05/01/24 06:32
ALT 491 U/L (0-35) H 05/01/24 06:32
Alkaline Phosphatase 123 U/L (38-126) 05/01/24 06:32
Lipase > 4000 U/L (23-300) H* 05/01/24 06:32
Vital Signs and I&O:
Vital Signs
Temp Pulse Resp BP Pulse Ox
99.1 F 82 18 115/69 94
05/01/24 07:00 05/01/24 07:00 05/01/24 07:00 05/01/24 07:00 05/01/24 07:00
I&O
04/30/24 05/01/24 05/02/24
06:59 06:59 06:59
Intake Total 1800 / 1800
Balance 1800 / 1800
Physical Exam
Physical Exam
Gen: Nontoxic appearing, but somewhat uncomfortable 2/2 pain
GI: Soft, +BS, slightly distended, tympanic to percussion. +tender to palpation w/ voluntary guarding in the epigastrium
[2024-05-01] MEDS: LR 500 IV (10:03)
--- NOTE | 2024-05-01 10:05 | CM ---
Patient seen bedside with , initial assessment completed. Patient resides in a multiple story home, one step to enter, fourteen steps to second floor. Patient denies DME other than CPAP, currently on O2, is not on home O2. Patient reports VN
in past 3-4 years ago after surgery, unsure agency. Patient denies SNF. Patient confirms PCP Ivan Biswas, pharmacy [facility]. Patient confirms prescription coverage, denies food, housing/utility, transportation insecurities at home. CM will
continue to follow for all discharge planning needs.
Plan; home no needs likely.
--- NOTE | 2024-05-01 10:11 | W.PN.HOSP.TC ---
Today's Communication/Plan
-
UGI and MRCP pending, continue IVF, pain control, MSAS
Assessment / Plan
Assessment / Plan
74yo F with PMH peptic ulcer disease, recent shoulder surgery with daily NSAID use, daily alcohol use, HLD, obesity, s/p appendectomy, ventral hernia repair, who presented to the ED 04/30 for abdominal pain and bilious emesis. In the ED, lipase >[address] consistent with pancreatitis. CT report also notes duodenal diverticula vs contained perforation.
Abdominal pain likely secondary to acute pancreatitis
Abnormal liver enzymes
- Abdominal pain, lipase >4000, and inflammation of pancreas on CT satisfies diagnosis of acute pancreatitis. However given additional findings in CT report, plan to rule out additional etiologies of presentation. See below.
- Possible triggers of acute pancreatitis include daily alcohol use, gallstones, obesity
- Continue IVF and pain control with tylenol and dilaudid prn
- Trend daily CMP
?Duodenal perforation
History of peptic ulcer disease
Daily NSAID use
- CT report notes possible duodenal diverticula vs contained perforation
- Patient to remain NPO pending further testing
- UGI and MRCP ordered, results pending
- Continue IVF and pain control with tylenol and dilaudid prn. Avoid NSAIDs.
- Continue protonix 40mg
- GI and general surgery consulted, appreciate recs.
- Await further imaging results and monitor clinically
Leukocytosis
- WBC increased overnight from 5.5 --> 18.4 today, with elevated band neutrophils
- Concerning for infection, zosyn initiated 05/01 by GI
- Blood cultures pending
- Afebrile, Tmax 99.8. Mild tachycardia overnight
- May be reactive leukocytosis though will continue zosyn empirically at this time
- Trend CBC, follow fever curve
Daily alcohol use
- MSAS protocol ordered
- Supplement folic acid, thiamine
RHONDA
- Continue CPAP overnight
HLD
- Hold statin
Anxiety
- Continue home buproprion and lorazepam
Retinal detachment s/p surgeries
- Continue home eye drops and vision supplements
Code status: full
VTE ppx: heparin 5000u bid
Diet: NPO
Dispo planning: pending
Anticipated Discharge: > 48 hours
Subjective/Interval History
-
Date of Service: May 01, 2024
No acute events overnight. She complains of abdominal pain that is the same as yesterday. The pain is most intense in the middle/center of her abdomen and epigastrium. The pain radiates to her back bilaterally and makes it difficult to take a deep
breath. She reports bilious emesis yesterday, and denies bloody or coffee ground emesis. She has not had any vomiting today. She was last able to tolerate PO on Saturday. Her last bowel movement was 3 days ago. She is very uncomfortable and also
has a headache which she attributes to not being able to drink coffee or eat. She denies fevers, chills, chest pain, visual changes.
Objective Data
-
Labs:
Laboratory Results
05/01/24
06:32
WBC 18.4 H
Hgb 12.3
Hct 36.2 L
Plt Count 153 D
Sodium 139
Potassium 4.0
Chloride 102
Carbon Dioxide 27
BUN 24 H
Creatinine 0.9
Glucose 118 H
Calcium 8.4
Total Bilirubin 2.0 H
AST 658 H*
ALT 491 H
Alkaline Phosphatase 123
Vital Signs:
Vital Signs
Temp Pulse Resp BP Pulse Ox
99.1 F 82 18 115/69 94
05/01/24 07:00 05/01/24 07:00 05/01/24 07:00 05/01/24 07:00 05/01/24 07:00
I&O
04/30/24 05/01/24 05/02/24
06:59 06:59 06:59
Intake Total 1800 / 1799
Balance 1800 / 1799
Review of Systems
-
History Source: Patient
All other systems: Reviewed and negative
Physical Exam
-
General: Well Developed, Well Nourished, Conversant, Obese and Other (appears uncomfortable)
HEENT: Normocephalic, Atraumatic and Anicteric
Respiratory: Clear to Auscultation and Non Labored Respirations
Cardiac: Regular Rhythm and S1/S2
GI: Other (abdomen distended and firm, tender to palpation diffusely which is worst in epigastric/periumbilical region, voluntary guarding, no rebound. +active bowel sounds present)
Musculoskeletal: No Cyanosis and No Edema
Skin: Warm and Dry
Neuro: Awake, Alert, Oriented, AO x 3 and Nonfocal/Grossly Intact
Psych: Calm and Intact Judgement/Insight
[2024-05-01 11:26] LABS: Triglycerides 225 mg/dl (10-149)
[2024-05-01] MEDS: ZOSYN 50 IV ×3 (12:01→21:04)
[2024-05-01] MEDS: DILAUDID 1 MG IV (15:20)
[2024-05-01] MEDS: OFIRMEV 100 IV (15:33)
[2024-05-01 16:26] VITALS: BP 113/66
[2024-05-01] MEDS: FOLVITE 1 MG PO (20:01)
[2024-05-01] MEDS: MOTRIN 400 MG PO (20:01)
[2024-05-01 20:02] LABS: Lactic Acid 2.4 mmol/L (0.7-2.0)
[2024-05-01] MEDS: THIAMINE INJECTION 200 MG IV (20:02)
[2024-05-01 20:04] LABS: INR 1.27; PT 15.7 Sec (11.4-14.6)
[2024-05-01 20:05] LABS: APTT 38.5 Sec (23.4-35.0)
[2024-05-01 20:06] LABS: Creatine Phosphokinase 42 U/L (30-135); Magnesium 1.9 mg/dl (1.6-2.3); Phosphorus 2.8 mg/dl (2.5-4.5)
[2024-05-01 20:08] LABS: ALT (SGPT) 393 U/L (0-35); AST (SGOT) 406 U/L (14-36); Alkaline Phosphatase 135 U/L (38-126); Blood Urea Nitrogen 23 mg/dl (7-17); Carbon Dioxide 23 mmol/L (22-30); Chloride 101 mmol/L (98-107); Estimated Creatinine Clearance 57 ml/min; Glucose 144 mg/dl (70-99); Potassium 3.4 mmol/L (3.5-5.1); Sodium 140 mmol/L (135-145); Total Bilirubin 1.8 mg/dl (0.2-1.3); Total Protein 6.4 g/dl (6.3-8.2); eGFR 59.49
[2024-05-01 20:11] LABS: Hemoglobin 12.1 g/dL (12.0-16.0); Mean Corp Hgb Conc. 33.6 g/dL (33.0-37.0); Mean Corpuscular Hgb 30.4 pg (27.0-31.0); Mean Corpuscular Volume 90.5 fL (81.0-99.0); Mean Platelet Volume 10.2 fL (7.4-10.4); Platelet Count 143 10^3/uL (130-400); Red Blood Cell Count 3.98 10^6/uL (4.20-5.40); Red Cell Dist. Width 13.9 % (11.5-14.5); White Blood Cell Count 15.4 10^3/uL (4.8-10.8)
[2024-05-01 20:55] LABS: % Basophils 0.5 % (0-2); % Eosinophils 0.5 % (0-6); % Immature Granulocytes 3.8 % (0-0.5); % Lymphocytes 6.7 % (20.5-51.1); % Monocytes 1.1 % (1.7-9.3); % Neutrophils 87.4 % (42.2-75.2); Absolute Basophils 0.1 10^3/uL (0-0.2); Absolute Eosinophils 0.1 10^3/uL (0-0.7); Absolute Immature Granulocytes 0.6 10^3/uL (0-0.05); Absolute Monocytes 0.2 10^3/uL (0.1-0.6); Absolute Neutrophils 13.4 10^3/uL (1.4-6.5); Nucleated Red Blood Cells % 0 %
[2024-05-01 23:00] VITALS: BP 102/63
[2024-05-02] MEDS: LR 1000 IV ×4 (01:40→23:48)
[2024-05-02] MEDS: DILAUDID 1 MG IV ×2 (03:53→07:42)
[2024-05-02] MEDS: ZOSYN 50 IV ×4 (03:53→22:12)
[2024-05-02] MEDS: ZOFRAN 4 MG IV (04:26)
[2024-05-02 04:59] LABS: Hematocrit 36.4 % (37.0-47.0); Hemoglobin 12.3 g/dL (12.0-16.0); Mean Corp Hgb Conc. 33.8 g/dL (33.0-37.0); Mean Corpuscular Hgb 31.1 pg (27.0-31.0); Mean Corpuscular Volume 91.9 fL (81.0-99.0); Mean Platelet Volume 10.1 fL (7.4-10.4); Platelet Count 134 10^3/uL (130-400); Red Blood Cell Count 3.96 10^6/uL (4.20-5.40); Red Cell Dist. Width 13.5 % (11.5-14.5); White Blood Cell Count 15.8 10^3/uL (4.8-10.8)
[2024-05-02 05:08] LABS: ALT (SGPT) 345 U/L (0-35); AST (SGOT) 258 U/L (14-36); Albumin 3.7 g/dl (3.5-5.0); Alkaline Phosphatase 150 U/L (38-126); Blood Urea Nitrogen 17 mg/dl (7-17); Calcium 9.3 mg/dl (8.4-10.2); Carbon Dioxide 25 mmol/L (22-30); Chloride 101 mmol/L (98-107); Estimated Creatinine Clearance 95 ml/min; Glucose 116 mg/dl (70-99); Potassium 3.4 mmol/L (3.5-5.1); Sodium 141 mmol/L (135-145); Total Bilirubin 1.5 mg/dl (0.2-1.3); Total Protein 6.4 g/dl (6.3-8.2); Triglycerides 175 mg/dl (10-149); eGFR > 60.00
[2024-05-02 07:00] VITALS: BP 143/73
[2024-05-02] MEDS: COSOPT EYE DROPS 2 DROP BOTH EYES (07:31)
[2024-05-02] MEDS: PROTONIX IV 40 MG IV ×2 (07:32→20:10)
[2024-05-02] MEDS: THIAMINE INJECTION 200 MG IV ×2 (07:32→20:11)
[2024-05-02] MEDS: NSS (PRESERVATIVE FREE) 10 ML IV ×2 (07:32→20:10)
[2024-05-02] MEDS: FOLVITE 1 MG PO (07:32)
[2024-05-02] MEDS: OCUVITE SOFTGEL 1 CAP PO (07:32)
[2024-05-02] MEDS: VISBIOME 1 CAP PO (07:32)
[2024-05-02] MEDS: WELLBUTRIN XL (24 hour extended release) 300 MG PO (07:33)
[2024-05-02] MEDS: HEPARIN 5000 UNITS SC ×2 (07:33→20:13)
[2024-05-02] MEDS: ATIVAN 1 MG PO ×2 (07:42→20:12)
[2024-05-02] MEDS: KCL 40 MEQ PO (08:15)
[2024-05-02] MEDS: PRED FORTE 1% EYE DROPS 1 DROP LEFT EYE (08:16)
[2024-05-02 08:33] LABS: Absolute Neutrophils -Man Diff 14.5 10^3/uL (1.4-6.5); Band Neutrophils 12 % (0-3); Lymphocytes 7 % (20-51); Normal RBC Morphology Yes; Platelets Checked Yes; Segmented Neutrophils 80 % (42-75)
[2024-05-02 08:34] LABS: Total Cells Counted 100
--- NOTE | 2024-05-02 09:39 | W.PN.GI.CBS2 ---
Today's Communication / Plan
-
f/u bcx. better pain control
Assessment / Plan
-
Kalie is a 74-year-old female with history of obesity, RHONDA, asthma, hyperlipidemia, peptic ulcer disease, IBS, colon polyps, history of abdominoplasty, recent surgery for retinal detachment and shoulder surgery with regular NSAID use presents
with acute onset abdominal pain with associated nausea and bilious emesis with findings c/w acute pancreatitis. General surgery was initially consulted due c/f duodenal perforation, however, further imaging was clearly able to differentiate acute
pancreatitis from 3 large duodenal diverticulum, with no evidence of perofration.
--> CT on admission showed probable pancreatitis, rounded fluid attenuating lesions in the duodenum which represent possible duodenal diverticula which was seen on prior imaging versus contained perforation.
-->Upper GI 05/01/2024: 3 large duodenal diverticulum corresponding to CT imaging without perforation. Esophagus, stomach and duodenum otherwise unremarkable.
--> MRI/MRCP: 05/01/24: No gallstones, gallbladder appearance unremarkable. No biliary ductal dilation. No strictures or evidence of choledocholithiasis. Edema and stranding surrounding the pancreas without fluid collections. consistent with acute
interstitial pancreatitis.
WBC 5.5 --> 18.4 --> 15.4 --> 15.8 +bandemia
BUN 21 --> 20 -->24--> 23 --> 17
Tbili 2.5 --> 2 --> 1.8 --> 1.5
AST 118 --> 658--> 406 --> 258
ALT 610-->491 --> 393 --> 345
Alk phos 212 --> 123--> 135 --> 150
Lipase >4,000, >4,000
Triglycerides 175
IgG4 pending
#Acute interstitial Pancreatitis
-c/w IVF
-pain not currently under control-- she received very minimal pain medication yesterday-- give 1x dose of 1mg Dilaudid now
-UGI shows 3 large duodenal diverticulum, no evidence of perforation
-MRI/MRCP- acute interstitial pancreatitis
2/2 acute pancreatitis, however, still concern for duodenal perforation in setting of heavy NSAID use and hx of PUD
-Lipase >4,000 x2 --> repeat with AM labs
-BUN improving following additional fluid bolus yesterday, need to ensure we are adequately fluid resuscitating her
-leukocytosis improving, but still has bandemia, continue with zosyn until blood cultures return
-okay for clear liquids once patient is able to tolerate
-bowel regimen
Subjective
Subjective
Date of Service: May 02, 2024
Patient seen in follow-up, having significant amount of pain, does not feel it has been well controlled with current medications. Leukocytosis and liver enzymes improving.
Objective
Data Reviewed
Laboratory Data:
Laboratory Results
05/02/24 04:32
05/02/24 04:32
Laboratory Results
PT 15.7 Sec (11.4-14.6) H 05/01/24 19:36
INR 1.27 05/01/24 19:36
APTT 38.5 Sec (23.4-35.0) H 05/01/24 19:36
Phosphorus 2.8 mg/dl (2.5-4.5) 05/01/24 19:36
Magnesium 1.9 mg/dl (1.6-2.3) 05/01/24 19:36
Total Bilirubin 1.5 mg/dl (0.2-1.3) H 05/02/24 04:32
AST 258 U/L (14-36) H 05/02/24 04:32
ALT 345 U/L (0-35) H 05/02/24 04:32
Alkaline Phosphatase 150 U/L (38-126) H 05/02/24 04:32
Lipase > 4000 U/L (23-300) H* 05/01/24 06:32
Vital Signs and I&O:
Vital Signs
Temp Pulse Resp BP Pulse Ox
97.5 F 74 20 143/73 97
05/02/24 07:00 05/02/24 07:00 05/02/24 07:00 05/02/24 07:00 05/02/24 08:00
I&O
05/01/24 05/02/24 05/03/24
06:59 06:59 06:59
Intake Total 1800 / 1800 2760 / 2760
Balance 1800 / 1800 2760 / 2760
Physical Exam
Physical Exam
GENERAL: nontoxic appearing, uncomfortable 2/2 pain
ABDOMEN: +BS; somewhat distended with significant TTP in RUQ and epigastrium, +involuntary guarding
--- NOTE | 2024-05-02 12:09 | W.PN.HOSP.TC ---
Today's Communication/Plan
-
Continue IV fluids
Continue with CLD and advance diet as tolerated
Trend daily CBC and BMP here
As needed analgesia
Assessment / Plan
Assessment / Plan
#Acute pancreatitis -- Remy class 0-1
-Differential etiologies include alcohol versus idiopathic; unlikely gallstone disease as MRCP negative
-Presented with severe abdominal pain, lipase >4000, pancreatic inflammation on CT
-She is a daily drinker, states she will no longer drink alcohol after this
-Has been started on liquid diet, pain is improving
-Continue IV fluids with hematocrit goal <44%
-Trend daily CBC for Hct, BMP for BUN
-Advance diet as patient tolerate
-Continue with as needed analgesia
#Leukocytosis -- suspect reactive to SIRS from pancreatitis
-After arrival her white cell count increased from 5.5-18.4
-She was started on IV Zosyn empirically for bowel coverage, cultures were taken prior
-Leukocytosis is now downtrending, cultures remain negative though preliminary
-Will continue to trend temperature curve and CBC while here
-Low threshold for discontinuing antibiotic
#H/O PUD
-Initial concern for worsening peptic ulcer disease/duodenal perforation
-Was recently taking high quantities of NSAIDs due to a rotator cuff injury
-CT did showed duodenal diverticula, UGI series without signs of perforation
-Continue with PPI therapy, avoid NSAIDs
-GI and surgery are following
#EtOH abuse
-MSAS protocol while here, supplement folate and thiamine
-Encourage cessation after discharge to avoid further pancreatitis episodes
#RHONDA on CPAP
-Continue nightly CPAP
#Dyslipidemia
-No ASCVD history, statin currently held though will resume
#Anxiety
-Remains on home regimen of bupropion and Ativan
#H/O retinal detachment s/p surgical correction
-Remains on home eyedrops and visual supplements
#Hypokalemia
-Mild, related to poor oral intake
-Provided 40 mEq potassium
DVT prophylaxis: Heparin twice daily
Diet: Clear liquid, advance as tolerated
CODE STATUS: Full
Anticipated Discharge: 24 - 48 hours
Subjective/Interval History
-
Date of Service: May 02, 2024
Seen and examined the bedside. No acute events overnight.
As of this morning AFVSS. She was about to have some coffee and states that she feels much better today than compared to yesterday
She still has some abdominal pain though improved. Nausea is much better. Denies chest pain, dyspnea, fevers or chills, constipation or diarrhea, abnormal bleeding or bruising, urinary issues, paresthesias or weakness.
Objective Data
-
Labs:
Laboratory Results
05/02/24
04:32
WBC 15.8 H
Hgb 12.3
Hct 36.4 L
Plt Count 134
Sodium 141
Potassium 3.4 L
Chloride 101
Carbon Dioxide 25
BUN 17
Creatinine 0.6
Glucose 116 H
Calcium 9.3
Total Bilirubin 1.5 H
AST 258 H
ALT 345 H
Alkaline Phosphatase 150 H
Vital Signs:
Vital Signs
Temp Pulse Resp BP Pulse Ox
97.5 F 74 20 143/73 97
05/02/24 07:00 05/02/24 07:00 05/02/24 07:00 05/02/24 07:00 05/02/24 08:00
I&O
05/01/24 05/02/24 05/03/24
06:59 06:59 06:59
Intake Total 1800 / 1800 2760 / 2760
Balance 1800 / 1800 2760 / 2760
Review of Systems
-
History Source: Patient
All other systems: Reviewed and negative
Physical Exam
-
General: No Apparent Distress, Comfortable, Conversant and Obese
HEENT: Normocephalic, Atraumatic and Moist Mucous Membranes
Respiratory: Clear to Auscultation and Non Labored Respirations; Negative Wheezes, Rales or Rhonchi
Cardiac: Regular Rhythm and S1/S2; Negative Murmur, Rub or Gallop
GI: Soft, Normal Bowel Sounds, Tender (Improved, mostly epigastric/periumbilical), Distended and Other (No peritoneal signs)
Musculoskeletal: No Clubbing, No Cyanosis and No Edema
Skin: Warm and Dry; Negative Rash or Jaundice
Neuro: AO x 3, Nonfocal/Grossly Intact and Central Nerve's Intact; Negative Tremors
Data Reviewed
-
Labs: Labs Reviewed by me and Discussed with Patient
[2024-05-02] MEDS: DILAUDID 0.5 MG IV ×3 (12:50→20:11)
[2024-05-02 15:00] VITALS: BP 130/84
[2024-05-02] MEDS: COSOPT EYE DROPS 1 DROP BOTH EYES (20:12)
[2024-05-02 23:00] VITALS: BP 137/77
[2024-05-03] MEDS: ZOSYN 50 IV ×4 (03:49→21:13)
[2024-05-03] MEDS: LR 1000 IV ×3 (03:54→19:48)
[2024-05-03 04:12] LABS: Hematocrit 34.2 % (37.0-47.0); Hemoglobin 11.5 g/dL (12.0-16.0); Mean Corp Hgb Conc. 33.6 g/dL (33.0-37.0); Mean Corpuscular Hgb 30.9 pg (27.0-31.0); Mean Corpuscular Volume 91.9 fL (81.0-99.0); Platelet Count 131 10^3/uL (130-400); Red Blood Cell Count 3.72 10^6/uL (4.20-5.40); Red Cell Dist. Width 13.2 % (11.5-14.5); White Blood Cell Count 16.5 10^3/uL (4.8-10.8)
[2024-05-03 04:24] LABS: Blood Urea Nitrogen 6 mg/dl (7-17); Calcium 9.4 mg/dl (8.4-10.2); Carbon Dioxide 27 mmol/L (22-30); Chloride 99 mmol/L (98-107); Estimated Creatinine Clearance 95 ml/min; Glucose 104 mg/dl (70-99); Potassium 3.2 mmol/L (3.5-5.1); Sodium 140 mmol/L (135-145); eGFR > 60.00
[2024-05-03 07:00] VITALS: BP 137/74
[2024-05-03] MEDS: COSOPT EYE DROPS 2 DROP BOTH EYES (07:07)
[2024-05-03] MEDS: WELLBUTRIN XL (24 hour extended release) 300 MG PO (07:07)
[2024-05-03] MEDS: VISBIOME 1 CAP PO (07:07)
[2024-05-03] MEDS: OCUVITE SOFTGEL 1 CAP PO (07:07)
[2024-05-03] MEDS: NSS (PRESERVATIVE FREE) 10 ML IV ×2 (07:07→19:53)
[2024-05-03] MEDS: PROTONIX IV 40 MG IV ×2 (07:07→19:53)
[2024-05-03] MEDS: THIAMINE INJECTION 200 MG IV ×2 (07:07→19:55)
[2024-05-03] MEDS: HEPARIN 5000 UNITS SC ×2 (07:07→19:49)
[2024-05-03] MEDS: FOLVITE 1 MG PO (07:08)
[2024-05-03] MEDS: PRED FORTE 1% EYE DROPS 1 DROP LEFT EYE (07:08)
[2024-05-03 07:10] LABS: % Basophils 0.5 % (0-2); % Eosinophils 1.6 % (0-6); % Immature Granulocytes 0.7 % (0-0.5); % Monocytes 4.3 % (1.7-9.3); % Neutrophils 80.9 % (42.2-75.2); Absolute Basophils 0.1 10^3/uL (0-0.2); Absolute Eosinophils 0.3 10^3/uL (0-0.7); Absolute Immature Granulocytes 0.1 10^3/uL (0-0.05); Absolute Monocytes 0.7 10^3/uL (0.1-0.6); Absolute Neutrophils 13.3 10^3/uL (1.4-6.5); Nucleated Red Blood Cells % 0 %
[2024-05-03] MEDS: KCL 40 MEQ PO ×2 (08:41→15:29)
--- NOTE | 2024-05-03 09:48 | W.PN.GI.CBS2 ---
Today's Communication / Plan
-
Continued pain control, ADAT
Assessment / Plan
-
Kalie is a 74-year-old female with history of obesity, RHONDA, asthma, hyperlipidemia, peptic ulcer disease, IBS, colon polyps, history of abdominoplasty, recent surgery for retinal detachment and shoulder surgery with regular NSAID use presents
with acute onset abdominal pain with associated nausea and bilious emesis with findings c/w acute pancreatitis. General surgery was initially consulted due c/f duodenal perforation, however, further imaging was clearly able to differentiate acute
pancreatitis from 3 large duodenal diverticulum, with no evidence of perofration.
--> CT on admission showed probable pancreatitis, rounded fluid attenuating lesions in the duodenum which represent possible duodenal diverticula which was seen on prior imaging versus contained perforation.
-->Upper GI 05/01/2024: 3 large duodenal diverticulum corresponding to CT imaging without perforation. Esophagus, stomach and duodenum otherwise unremarkable.
--> MRI/MRCP: 05/01/24: No gallstones, gallbladder appearance unremarkable. No biliary ductal dilation. No strictures or evidence of choledocholithiasis. Edema and stranding surrounding the pancreas without fluid collections. consistent with acute
interstitial pancreatitis.
WBC 5.5 --> 18.4 --> 15.4 --> 15.8 +bandemia --> 16.5
BUN 21 --> 20 -->24--> 23 --> 17-->6
Tbili 2.5 --> 2 --> 1.8 --> 1.5 (no LFTs today)
AST 118 --> 658--> 406 --> 258
ALT 610-->491 --> 393 --> 345
Alk phos 212 --> 123--> 135 --> 150
Lipase >4,000, >4,000
Triglycerides 175
IgG4 pending
#Acute interstitial Pancreatitis suspect 2/2 EtoH abuse
-c/w IVF, analgesia, antiemetics --> patient has pain medications ordered, encouraged her to ask for them
-UGI shows 3 large duodenal diverticulum, no evidence of perforation
-MRI/MRCP- acute interstitial pancreatitis 2/2 acute pancreatitis, however, still concern for duodenal perforation in setting of heavy NSAID use and hx of PUD
-Lipase >4,000 x2 --> sent add on lab
-BUN improving, now 6
-leukocytosis improving, but still has bandemia, continue with zosyn until blood cultures return; prelim cx NGTD
-okay for clear liquids
-bowel regimen
-replete electrolytes
Subjective
Subjective
Date of Service: May 03, 2024
Patient reports significant pain all day yesterday with some improvement this morning. She feels relief after getting pain medication, but only lasts about 2 hours.
Objective
Data Reviewed
Laboratory Data:
Laboratory Results
05/03/24 03:51
05/03/24 03:51
Laboratory Results
PT 15.7 Sec (11.4-14.6) H 05/01/24 19:36
INR 1.27 05/01/24 19:36
APTT 38.5 Sec (23.4-35.0) H 05/01/24 19:36
Phosphorus 2.8 mg/dl (2.5-4.5) 05/01/24 19:36
Magnesium 1.9 mg/dl (1.6-2.3) 05/01/24 19:36
Total Bilirubin 1.5 mg/dl (0.2-1.3) H 05/02/24 04:32
AST 258 U/L (14-36) H 05/02/24 04:32
ALT 345 U/L (0-35) H 05/02/24 04:32
Alkaline Phosphatase 150 U/L (38-126) H 05/02/24 04:32
Lipase > 4000 U/L (23-300) H* 05/01/24 06:32
Vital Signs and I&O:
Vital Signs
Temp Pulse Resp BP Pulse Ox
98.2 F 78 20 137/74 92
05/03/24 07:00 05/03/24 07:00 05/03/24 07:00 05/03/24 07:00 05/03/24 07:00
I&O
05/02/24 05/03/24 05/04/24
06:59 06:59 06:59
Intake Total 2760 / 2760 2820 / 2820
Balance 2760 / 2760 2820 / 2820
Physical Exam
Physical Exam
GENERAL: nontoxic appearing, uncomfortable 2/2 pain
ABDOMEN: +BS; somewhat distended with significant TTP in RUQ and epigastrium, +involuntary guarding
[2024-05-03 10:53] LABS: ALT (SGPT) 228 U/L (0-35); AST (SGOT) 100 U/L (14-36); Albumin 3.6 g/dl (3.5-5.0); Alkaline Phosphatase 128 U/L (38-126); Direct Bilirubin 0.6 mg/dl (0.0-0.4); Lipase 1656 U/L (23-300)
[2024-05-03] MEDS: DILAUDID 0.5 MG IV ×2 (10:58→15:09)
--- NOTE | 2024-05-03 12:09 | W.PN.HOSP.TC ---
Today's Communication/Plan
-
Continue with IV fluids, advance diet as tolerated
Trend daily CBC, BMP, LFT
IV Dilaudid as needed for analgesia
Continue IV Zosyn for now
Assessment / Plan
Assessment / Plan
#Acute pancreatitis -- Remy class 0-1
-Differential etiologies include alcohol versus idiopathic; unlikely gallstone disease as MRCP negative
-Presented with severe abdominal pain, lipase >4000, pancreatic inflammation on CT
-She is a daily drinker, states she will no longer drink alcohol after this
-Has been started on liquid diet, pain is improving, ADAT
-Continue IV fluids with hematocrit goal <44%
-Trend daily CBC for Hct, BMP for BUN
-Continue with as needed analgesia
#Leukocytosis -- suspect reactive to SIRS from pancreatitis
-After arrival her white cell count increased from 5.5-18.4, has been near 15 since
-She was started on IV Zosyn empirically for bowel coverage, cultures were taken prior
-Will continue to trend temperature curve and CBC while here
-Low threshold for discontinuing antibiotic
#H/O PUD
-Initial concern for worsening peptic ulcer disease/duodenal perforation
-Was recently taking high quantities of NSAIDs due to a rotator cuff injury
-CT did showed duodenal diverticula, UGI series without signs of perforation
-Continue with PPI therapy, avoid NSAIDs
-GI and surgery are following
#EtOH abuse
-MSAS protocol while here, supplement folate and thiamine
-Encourage cessation after discharge to avoid further pancreatitis episodes
#RHONDA on CPAP
-Continue nightly CPAP
#Dyslipidemia
-No ASCVD history, statin currently held though will resume
#Anxiety
-Remains on home regimen of bupropion and Ativan
#H/O retinal detachment s/p surgical correction
-Remains on home eyedrops and visual supplements
#Hypokalemia
-Mild, related to poor oral intake
-Continue to monitor BMP and replete
DVT prophylaxis: Heparin twice daily
Diet: Clear liquid, advance as tolerated
CODE STATUS: Full
Anticipated Discharge: 24 - 48 hours
Subjective/Interval History
-
Date of Service: May 03, 2024
Seen and examined at the bedside. No acute events reported overnight. AFVSS this morning.
She states she is feeling better. Still has some abdominal pain though improving, was able to handle clear liquids yesterday without any vomitus. She says that her current pain meds provide relief, however she feels 'weird' asking frequently to
have pain meds so there is sometimes a delay in her receiving them. I have encouraged her to ask for the pain meds when needed
She otherwise denies chest pain, shortness of breath, diarrhea constipation, urinary issue, abnormal bleeding or bruising, paresthesias or weakness. She does states she feels feverish at times though no objective fevers overnight. Abdominal
distention is also improving
Objective Data
-
Labs:
Laboratory Results
05/03/24
03:51
WBC 16.5 H
Hgb 11.5 L
Hct 34.2 L
Plt Count 131
Sodium 140
Potassium 3.2 L
Chloride 99
Carbon Dioxide 27
BUN 6 L
Creatinine 0.5 L
Glucose 104 H
Calcium 9.4
Total Bilirubin 1.0
AST 100 H
ALT 228 H
Alkaline Phosphatase 128 H
Vital Signs:
Vital Signs
Temp Pulse Resp BP Pulse Ox
98.2 F 78 20 137/74 92
05/03/24 07:00 05/03/24 07:00 05/03/24 07:00 05/03/24 07:00 05/03/24 07:00
I&O
05/02/24 05/03/24 05/04/24
06:59 06:59 06:59
Intake Total 2760 / 2760 2820 / 2820
Balance 2759
Review of Systems
-
History Source: Patient
All other systems: Reviewed and negative
Physical Exam
-
General: Well Nourished, No Apparent Distress and Obese
HEENT: Normocephalic, Atraumatic, Moist Mucous Membranes and Anicteric
Respiratory: Clear to Auscultation and Non Labored Respirations; Negative Wheezes, Rales or Rhonchi
Cardiac: Regular Rhythm and S1/S2; Negative Murmur, Rub, JVD or Gallop
GI: Soft, Normal Bowel Sounds, Tender (Epigastrium, periumbilical; no peritoneal signs) and Distended (Improved from yesterday)
Musculoskeletal: No Clubbing, No Cyanosis and No Edema
Skin: Warm and Dry; Negative Rash or Jaundice
Neuro: AO x 3, Nonfocal/Grossly Intact and Central Nerve's Intact; Negative Tremors
Data Reviewed
-
Labs: Labs Reviewed by me and Discussed with Patient
[2024-05-03 15:00] VITALS: BP 132/78
[2024-05-03 16:23] VITALS: BP 132/78
[2024-05-03] MEDS: COSOPT EYE DROPS 1 DROP BOTH EYES (19:48)
[2024-05-03] MEDS: DILAUDID 1 MG IV ×2 (19:57→23:08)
[2024-05-03] MEDS: KCL PO (21:17)
[2024-05-03 23:05] VITALS: BP 137/79
[2024-05-04 01:14] LABS: IgG Subclass 4 17 mg/dL (1-123)
[2024-05-04] MEDS: ZOSYN 50 IV ×2 (03:05→09:20)
[2024-05-04] MEDS: LR 1000 IV ×2 (03:07→16:18)
[2024-05-04 07:00] VITALS: BP 148/93
[2024-05-04] MEDS: THIAMINE INJECTION 200 MG IV (07:45)
[2024-05-04] MEDS: PROTONIX IV 40 MG IV ×2 (07:46→19:51)
[2024-05-04] MEDS: OCUVITE SOFTGEL 1 CAP PO (07:46)
[2024-05-04] MEDS: WELLBUTRIN XL (24 hour extended release) 300 MG PO (07:47)
[2024-05-04] MEDS: NSS (PRESERVATIVE FREE) 10 ML IV ×2 (07:47→19:51)
[2024-05-04] MEDS: HEPARIN 5000 UNITS SC ×2 (07:47→19:49)
[2024-05-04] MEDS: VISBIOME 1 CAP PO (07:47)
[2024-05-04] MEDS: PRED FORTE 1% EYE DROPS 1 DROP LEFT EYE (07:48)
[2024-05-04] MEDS: COSOPT EYE DROPS 1 DROP BOTH EYES ×2 (07:48→19:49)
[2024-05-04] MEDS: FOLVITE 1 MG PO (07:48)
--- NOTE | 2024-05-04 10:13 | W.PN.HOSP.TC ---
Addendum entered and electronically signed by Alison Hughes MD 05/04/24 14:48:
I personally performed a history and physical exam of the patient and discussed management with the resident. I reviewed the resident's note and agree with the documented findings and plan of care HPI/CC.
Abdomen: Soft, mild tenderness, Bowel sounds present
# Abdominal pain
Acute pancreatitis
Likely secondary to daily alcohol use
MRI/MRCP negative ruling out gallstone disease
Symptomatically improving
Patient had more pain after she had full liquids
Transition to p.o. meds and daily low-dose of IV fluids and watch
# History of peptic ulcer disease-continue PPI
Duodenitis
Duodenal perforation ruled out-imaging looks like duodenal diverticula
Patient had upper GI and MRCP/MRI
Duodenitis likely secondary to pancreatitis
Continue PPI
Avoid NSAIDs
Surgery and GI evaluated
# Hypokalemia-replace
# Leukocytosis-likely reactive
Stop IV antibiotics
# Daily alcohol use
Transaminitis secondary to alcohol
Encourage alcohol cessation
Supplement thiamine and folic acid
MSAs protocol
# Sleep apnea-continue CPAP
# Hyperlipidemia-continue statin
# Anxiety-continue Wellbutrin and lorazepam
# Obesity per BMI
# History of retinal detachment with surgical correction
# Migraine
# Hepatic steatosis
# Diverticulosis
# Ex-smoker
# Full code
# DVT prophylaxis-subcutaneous heparin
Discussed with at bedside
Part of this note was created using voice recognition system. Occasional wrong word or��sound alike� substitutions may have inadvertently occurred due to the inherent limitations of voice recognition software. If noted kindly bring it to my
attention for correction.
Original Note:
Today's Communication/Plan
-
discontinue zosyn, advance diet as tolerated, pain management
Assessment / Plan
Assessment / Plan
74yo F with H peptic ulcer disease, recent shoulder surgery with daily NSAID use, daily alcohol use, HLD, obesity, s/p appendectomy, ventral hernia repair, who presented to the ED 04/30 for abdominal pain and bilious emesis. In the ED, lipase >[address] consistent with pancreatitis. CT report also notes duodenal diverticula vs contained perforation.
#Acute pancreatitis
- Likely triggered by daily alcohol use; unlikely gallstone disease as MRCP negative
- Symptoms improving, but still reports postprandial pain requiring IV dilaudid 0.5-1 mg x4 yesterday
- Continue IV fluids and pain management. Will add tylenol, heating pad prn, and transition to PO
- Trend daily CBC for Hct, BMP for BUN
- Advance diet as tolerated
#History of peptic ulcer disease
#Duodenal diverticula
#Duodenitis
- Concern on admission for possible duodenal perforation vs duodenal diverticula
- Further imaging with UGI and MRCP ruled out perforation
- Duodenitis likely reactive secondary to acute pancreatitis
- s/p GI and surgery consult
- Continue protonix BID
- Avoid NSAIDs
#Leukocytosis
- Likely reactive secondary to acute pancreatitis
- WBC 5.5 on arrival --> increased to 18.4 on 05/01
- Started on IV zosyn empirically for bowel coverage
- WBC remain elevated but stable, and she has been afebrile and clinically improving. Low suspicion for active infection. Will discontinue zosyn today
- Blood cultures no growth to date
- Trend CBC, follow fever curve
#Daily alcohol use
- MSAS protocol while here, supplement folate and thiamine
- Encourage alcohol cessation
#RHONDA on CPAP
-Continue nightly CPAP
#Dyslipidemia
- Resume home statin
#Anxiety
- Continue home buproprion and lorazepam
#H/O retinal detachment s/p surgical correction
- Continue home eyedrops and visual supplements
#Hypokalemia
- Mild, related to poor oral intake
- Continue to monitor BMP and replete
Code status: full
VTE ppx: heparin BID
Diet: full liquid, advance as tolerated
Dispo planning: anticipate dc home when able, pending clinical course
Anticipated Discharge: 24 - 48 hours
Subjective/Interval History
-
Date of Service: May 04, 2024
No acute events overnight. She feels better and at this time has no abdominal pain. She does report intermittent abdominal pain that is worse after drinking (has been on clear liquid diet). She denies lightheadedness, dizziness, chest pain,
shortness of breath, nausea, vomiting, weakness. She is ambulating in room without assistance.
Objective Data
-
Labs:
Microbiology Results - Entire Visit
05/01/24 12:00 Blood/Venous Blood Culture - Preliminary
No Growth in 72 hours- Final report to follow
Blood Gas and Chemistry - Last 24 hours
05/04/24 Range/Units
12:54
Sodium 141 (135-145) mmol/L
Potassium 3.2 L (3.5-5.1) mmol/L
Chloride 100 (98-107) mmol/L
Carbon Dioxide 27 (22-30) mmol/L
BUN 6 L (7-17) mg/dl
Creatinine 0.6 (0.6-1.0) mg/dL
Estimated Creat Clear 95 ml/min
eGFR > 60.00
Glucose 150 H (70-99) mg/dl
Calcium 9.5 (8.4-10.2) mg/dl
Magnesium 1.9 (1.6-2.3) mg/dl
Total Bilirubin 0.8 (0.2-1.3) mg/dl
AST 46 H (14-36) U/L
ALT 142 H (0-35) U/L
Alkaline Phosphatase 132 H (38-126) U/L
Total Protein 6.2 L (6.3-8.2) g/dl
Albumin 3.6 (3.5-5.0) g/dl
Other lab results - Last 24 hours
05/02/24 Range/Units
04:32
IgG4 17 (1-123) mg/dL
Vital Signs:
Vital Signs
Temp Pulse Resp BP Pulse Ox
98.9 F 82 20 148/93 93
05/04/24 07:00 05/04/24 07:00 05/04/24 07:00 05/04/24 07:00 05/04/24 07:00
I&O
05/03/24 05/04/24 05/05/24
06:59 06:59 06:59
Intake Total 2820 / 2820 4550 / 4550
Balance 2820 / 2820 4550 / 4550
Review of Systems
-
History Source: Patient
All other systems: Reviewed and negative
Physical Exam
-
General: Well Developed, Well Nourished, No Apparent Distress, Comfortable, Conversant and Obese; Negative Pain
HEENT: Normocephalic, Atraumatic and Anicteric
Respiratory: Clear to Auscultation and Non Labored Respirations
Cardiac: Regular Rhythm and S1/S2
GI: Soft, Normal Bowel Sounds, Tender (mild tenderness to deep palpation, significantly improved from last week) and Distended
Musculoskeletal: No Cyanosis and No Edema
Skin: Warm and Dry
Neuro: Awake, Alert, Oriented, AO x 3, No Motor Deficits and Nonfocal/Grossly Intact
Psych: Calm and Intact Judgement/Insight
Data Reviewed
-
CT Scan: Image personally visualized and interpreted, Report Reviewed by me and Discussed with Physician
MRI: Image personally visualized and interpreted, Report Reviewed by me and Discussed with Physician
Labs: Labs Reviewed by me and Discussed with Physician
--- NOTE | 2024-05-04 10:23 | W.PN.GI.CBS2 ---
Today's Communication / Plan
-
Clinically improved. Adanvce to full liquids for lunch, ADAT. GI will sign off, please call with questions.
Assessment / Plan
-
Kalie is a 74-year-old female with history of obesity, RHONDA, asthma, hyperlipidemia, peptic ulcer disease, IBS, colon polyps, history of abdominoplasty, recent surgery for retinal detachment and shoulder surgery with regular NSAID use presents
with acute onset abdominal pain with associated nausea and bilious emesis with findings c/w acute pancreatitis. General surgery was initially consulted due c/f duodenal perforation, however, further imaging was clearly able to differentiate acute
pancreatitis from 3 large duodenal diverticulum, with no evidence of perofration.
--> CT on admission showed probable pancreatitis, rounded fluid attenuating lesions in the duodenum which represent possible duodenal diverticula which was seen on prior imaging versus contained perforation.
-->Upper GI 05/01/2024: 3 large duodenal diverticulum corresponding to CT imaging without perforation. Esophagus, stomach and duodenum otherwise unremarkable.
--> MRI/MRCP: 05/01/24: No gallstones, gallbladder appearance unremarkable. No biliary ductal dilation. No strictures or evidence of choledocholithiasis. Edema and stranding surrounding the pancreas without fluid collections. consistent with acute
interstitial pancreatitis.
WBC 5.5 --> 18.4 --> 15.4 --> 15.8 +bandemia --> 16.5
BUN 21 --> 20 -->24--> 23 --> 17-->6
Tbili 2.5 --> 2 --> 1.8 --> 1.5
AST 118 --> 658--> 406 --> 258
ALT 610-->491 --> 393 --> 345
Alk phos 212 --> 123--> 135 --> 150
Lipase >4,000, >4,000
Triglycerides 175
IgG4 pending
#Acute interstitial Pancreatitis suspect 2/2 EtoH abuse
-c/w IVF, analgesia, antiemetics --> patient has pain medications ordered, encouraged her to ask for them
-UGI shows 3 large duodenal diverticulum, no evidence of perforation
-MRI/MRCP- acute interstitial pancreatitis 2/2 acute pancreatitis, however, still concern for duodenal perforation in setting of heavy NSAID use and hx of PUD
-Lipase >4,000 x2 --> sent add on lab
-BUN improving
-leukocytosis improving, AM labs pending
-pain improved, tolerating clears, will advance to full liquids for lunch- if tolerates this without increased pain, okay to advance to low fat/low residue diet for dinner
-bowel regimen
-replete electrolytes
Subjective
Subjective
Date of Service: May 04, 2024
Patient seen in follow-up-- reports significant improvement in symptoms this morning. She is tolerating clears and would like to try to advance her diet.
Objective
Data Reviewed
Laboratory Data:
Laboratory Results
05/03/24 03:51
05/03/24 03:51
Laboratory Results
PT 15.7 Sec (11.4-14.6) H 05/01/24 19:36
INR 1.27 05/01/24 19:36
APTT 38.5 Sec (23.4-35.0) H 05/01/24 19:36
Phosphorus 2.8 mg/dl (2.5-4.5) 05/01/24 19:36
Magnesium 1.9 mg/dl (1.6-2.3) 05/01/24 19:36
Total Bilirubin 1.0 mg/dl (0.2-1.3) 05/03/24 03:51
AST 100 U/L (14-36) H 05/03/24 03:51
ALT 228 U/L (0-35) H 05/03/24 03:51
Alkaline Phosphatase 128 U/L (38-126) H 05/03/24 03:51
Lipase 1656 U/L (23-300) H* 05/03/24 03:51
Vital Signs and I&O:
Vital Signs
Temp Pulse Resp BP Pulse Ox
98.9 F 82 20 148/93 93
05/04/24 07:00 05/04/24 07:00 05/04/24 07:00 05/04/24 07:00 05/04/24 07:00
I&O
05/03/24 05/04/24 05/05/24
06:59 06:59 06:59
Intake Total 2820 / 2820 4550 / 4550
Balance 2820 / 2820 4550 / 4550
Physical Exam
Physical Exam
GENERAL: nontoxic appearing, uncomfortable 2/2 pain
ABDOMEN: +BS; mild distension, very minimal tenderness to palpation in RUQ and epigastrium, improved
--- NOTE | 2024-05-04 10:44 | CM ---
Reviewed chart, patient has been documented by nursing staff to be independent and ambulating in room and halls on an independent level. No other needs expressed. Plan remains for home.
Plan: Case management will continue to follow and assist with discharge planning. Home when stable.
[2024-05-04] MEDS: DILAUDID 0.5 MG IV (11:40)
[2024-05-04 13:41] LABS: ALT (SGPT) 142 U/L (0-35); AST (SGOT) 46 U/L (14-36); Albumin 3.6 g/dl (3.5-5.0); Alkaline Phosphatase 132 U/L (38-126); Blood Urea Nitrogen 6 mg/dl (7-17); Calcium 9.5 mg/dl (8.4-10.2); Carbon Dioxide 27 mmol/L (22-30); Chloride 100 mmol/L (98-107); Estimated Creatinine Clearance 95 ml/min; Glucose 150 mg/dl (70-99); Magnesium 1.9 mg/dl (1.6-2.3); Potassium 3.2 mmol/L (3.5-5.1); Sodium 141 mmol/L (135-145); Total Bilirubin 0.8 mg/dl (0.2-1.3); Total Protein 6.2 g/dl (6.3-8.2); eGFR > 60.00
[2024-05-04] MEDS: KCL 270 MEQ IV (15:17)
[2024-05-04 15:42] VITALS: BP 140/76
[2024-05-04] MEDS: DILAUDID 1 MG PO ×2 (17:47→23:24)
[2024-05-04] MEDS: VITAMIN B1 100 MG PO (19:50)
[2024-05-04 23:15] VITALS: BP 148/83
[2024-05-05] MEDS: LR 1000 IV (04:43)
[2024-05-05 07:30] VITALS: BP 151/81
[2024-05-05] MEDS: HEPARIN 5000 UNITS SC (08:19)
[2024-05-05] MEDS: PROTONIX IV 40 MG IV (08:19)
[2024-05-05 08:20] LABS: Hematocrit 37.1 % (37.0-47.0); Hemoglobin 12.5 g/dL (12.0-16.0); Mean Corp Hgb Conc. 33.7 g/dL (33.0-37.0); Mean Corpuscular Hgb 30.5 pg (27.0-31.0); Mean Corpuscular Volume 90.5 fL (81.0-99.0); Mean Platelet Volume 10.1 fL (7.4-10.4); Platelet Count 180 10^3/uL (130-400); Red Cell Dist. Width 13.5 % (11.5-14.5); White Blood Cell Count 13.2 10^3/uL (4.8-10.8)
[2024-05-05] MEDS: VISBIOME 1 CAP PO (08:20)
[2024-05-05] MEDS: FOLVITE 1 MG PO (08:20)
[2024-05-05] MEDS: NSS (PRESERVATIVE FREE) 10 ML IV (08:20)
[2024-05-05] MEDS: COSOPT EYE DROPS 1 DROP BOTH EYES (08:20)
[2024-05-05] MEDS: WELLBUTRIN XL (24 hour extended release) 300 MG PO (08:20)
[2024-05-05] MEDS: VITAMIN B1 100 MG PO (08:20)
[2024-05-05] MEDS: PRED FORTE 1% EYE DROPS 1 DROP LEFT EYE (08:21)
[2024-05-05] MEDS: OCUVITE SOFTGEL 1 CAP PO (08:21)
[2024-05-05 08:37] LABS: Blood Urea Nitrogen 7 mg/dl (7-17); Calcium 9.6 mg/dl (8.4-10.2); Carbon Dioxide 25 mmol/L (22-30); Chloride 103 mmol/L (98-107); Estimated Creatinine Clearance 95 ml/min; Glucose 108 mg/dl (70-99); Potassium 3.6 mmol/L (3.5-5.1); Sodium 141 mmol/L (135-145); eGFR > 60.00
--- NOTE | 2024-05-05 08:43 | W.PN.HOSP.TC ---
Addendum entered and electronically signed by Alison uHghes MD 05/05/24 18:44:
CDI- Mild lactic acidosis on admission
Addendum entered and electronically signed by Alison Hughes MD 05/05/24 14:54:
I personally performed a history and physical exam of the patient and discussed management with the resident. I reviewed the resident's note and agree with the documented findings and plan of care HPI/CC.
Abdomen: Soft, mild tenderness, Bowel sounds present
# Abdominal pain
Acute pancreatitis
Likely secondary to daily alcohol use
MRI/MRCP negative ruling out gallstone disease
Symptomatically improving
PO meds
Low fat diet
# History of peptic ulcer disease-continue PPI
Duodenitis
Duodenal perforation ruled out-imaging looks like duodenal diverticula
Patient had upper GI and MRCP/MRI
Duodenitis likely secondary to pancreatitis
Continue PPI
Avoid NSAIDs
Surgery and GI evaluated
# Hypokalemia-replaced
# Leukocytosis-likely reactive
Stop IV antibiotics
# Daily alcohol use
Transaminitis secondary to alcohol
Encourage alcohol cessation
Supplement thiamine and folic acid
MSAS protocol
# Sleep apnea-continue CPAP
# Hyperlipidemia-continue statin
# Anxiety-continue Wellbutrin and lorazepam
# Obesity per BMI
# History of retinal detachment with surgical correction
# Migraine
# Hepatic steatosis
# Diverticulosis
# Ex-smoker
# Full code
# DVT prophylaxis-subcutaneous heparin
Discussed with at bedside
If better with PO intake will discharge today or tomorrow
Part of this note was created using voice recognition system. Occasional wrong word or��sound alike� substitutions may have inadvertently occurred due to the inherent limitations of voice recognition software. If noted kindly bring it to my
attention for correction.
Original Note:
Today's Communication/Plan
-
Advance diet, pain control, likely discharge home today
Assessment / Plan
Assessment / Plan
74yo F with PMH peptic ulcer disease, recent shoulder surgery with daily NSAID use, daily alcohol use, HLD, obesity, s/p appendectomy, ventral hernia repair, who presented to the ED 04/30 for abdominal pain and bilious emesis. In the ED, lipase >[address] consistent with pancreatitis. CT report also notes duodenal diverticula vs contained perforation.
#Acute pancreatitis
- Likely triggered by daily alcohol use; unlikely gallstone disease as MRCP negative
- Symptoms improving, but still reports postprandial pain requiring PO dilaudid x2 yesterday
- Continue tylenol, heating pad. Will add simethicone or maalox prn for abdominal discomfort.
- Discontinue dilaudid. Reviewed pain expectations with pancreatitis duodenitis and peptic ulcers, dietary modifications, conservative measures, and goal to minimize opioid requirements. She understands and is agreeable. Will return to bedside to
reevaluate patient if pain is not adequately controlled.
- She is tolerating PO hydration and full liquid diet without nausea or vomiting. Continue advancing diet to low fat as tolerated
- Stable for discharge home when pain is adequately controlled
- Recommend alcohol cessation
#History of peptic ulcer disease
#Duodenal diverticula
#Duodenitis
- Concern on admission for possible duodenal perforation vs duodenal diverticula
- Further imaging with UGI and MRCP ruled out perforation
- Duodenitis likely reactive secondary to acute pancreatitis
- s/p GI and surgery consult
- Continue protonix BID
- Avoid NSAIDs
- Pain management and diet plans as above
- Follow up with GI outpatient
#Leukocytosis
- Likely reactive secondary to acute pancreatitis
- WBC 5.5 on arrival --> increased to 18.4 on 05/01
- Started on IV zosyn empirically for bowel coverage 05/01, discontinued 05/04
- WBC downtrending, 13.2 today. Remains afebrile and clinically improving. Low suspicion for active infection.
- Blood cultures 05/01: no growth in 4 days, final report pending
- Recommend repeat CBC 1 week after hospital discharge
#Daily alcohol use
- MSAS protocol while here, supplement folate and thiamine
- Encourage alcohol cessation
- No signs or symptoms of alcohol withdrawal
#RHONDA on CPAP
-Continue nightly CPAP
#Dyslipidemia
- Continue home statin
#Anxiety
- Continue home buproprion and lorazepam
#H/O retinal detachment s/p surgical correction
- Continue home eyedrops and visual supplements
#Hypokalemia: resolved
- Mild, related to poor oral intake
- S/p K supplementation
- Serum K 3.6 today, wnl
#Shoulder pain s/p orthopedic surgery
- Reports her orthopedic surgeon is not local
- Will provide referral information at discharge
Code status: full
VTE ppx: heparin BID
Diet: low fat, advance as tolerated
Dispo planning: anticipate discharge home today pending clinical course
Anticipated Discharge: Today
Subjective/Interval History
-
Date of Service: May 05, 2024
No acute events overnight. She reports her chronic left shoulder pain feels slightly worse today. No abdominal pain this morning. She reports some abdominal pain yesterday after drinking and eating (full liquid diet), though it is overall improving;
IV dalaudid was discontinued, and pain is controlled with oral medications (tylenol, PO dilaudid). She denies lightheadedness, dizziness, chest pain, shortness of breath, nausea, vomiting. She is tolerating PO clears and full liquid diet. She is
ambulating without assistance. Last bowel movement was this morning and was solid, brown, easy to pass. No black/bloody stools. She feels ready to go home.
Objective Data
-
Labs:
Laboratory Results
05/05/24
07:41
WBC 13.2 H
Hgb 12.5
Hct 37.1
Plt Count 180 D
Sodium 141
Potassium 3.6
Chloride 103
Carbon Dioxide 25
BUN 7
Creatinine 0.6
Glucose 108 H
Calcium 9.6
Vital Signs:
Vital Signs
Temp Pulse Resp BP Pulse Ox
97.5 F 75 19 151/81 97
05/05/24 07:30 05/05/24 07:30 05/05/24 07:30 05/05/24 07:30 05/05/24 07:30
I&O
05/04/24 05/05/24 05/06/24
06:59 06:59 06:59
Intake Total 4550 / 4550
Balance 4550 / 4550
Review of Systems
-
History Source: Patient
All other systems: Reviewed and negative
Physical Exam
-
General: Well Developed, Well Nourished, No Apparent Distress, Comfortable, Conversant and Obese; Negative Pain
HEENT: Normocephalic, Atraumatic and Anicteric
Respiratory: Clear to Auscultation and Non Labored Respirations
Cardiac: Regular Rhythm and S1/S2
GI: Soft, Nondistended, Normal Bowel Sounds and Tender (minimal tenderness to deep palpation in epigastrum, improving significantly)
Musculoskeletal: No Cyanosis and No Edema
Skin: Warm and Dry
Neuro: Awake, Alert, Oriented, AO x 3, No Motor Deficits and Nonfocal/Grossly Intact
Psych: Calm and Intact Judgement/Insight
Data Reviewed
-
Labs: Labs Reviewed by me and Discussed with Physician
[2024-05-05] MEDS: DILAUDID 1 MG PO (11:10)
[2024-05-05] MEDS: TYLENOL 650 MG PO ×2 (11:11→15:15)
[2024-05-05 15:08] VITALS: BP 147/81
--- NOTE | 2024-05-05 15:10 | PN.CDI ---
Addendum entered and electronically signed by Alison Hughes MD 05/05/24 15:24:
Documentation is complete at this time.
Original Note:
CDI
- -
CDI:
Physician Documentation Request
Admit Date: 04/30/24 18:13
Dear Doctor Rubin,
Please review the following and provide your response in the progress notes.
Clinical Indicators:
Pt admitted with acute pancreatitis.
05/01 GI Note: 'BUN rising, 24 today, currently getting LR @ 150 cc/hr, will give 500 cc bolus.'
Laboratory Tests
04/30/24 05/01/24 05/02/24
13:33 19:36 04:32
Creatinine 0.6 1.0 0.6
Clarify which of the following accurately represents the patient's renal status:
Acute kidney injury - see criteria
Other
Criteria for SOWMYA*
1 Increase in serum creatinine by > or = to 0.3 mg/dL (> or = to 26.5 micromol/L) within 48 hours, OR
2 Increase in serum creatinine to > or = to 1.5 times baseline, which is known or presumed to have occurred within 7 days, OR
3 Urine volume < 0.5 nL/kg/hour for six hours
Use of terms such as suspected, likely, concern for, or probable (associated with a specific diagnosis that is being evaluated, monitored, or treated as if it exists) are acceptable and can be coded in the inpatient setting, when documented at the
time of discharge.
Thank you,
Ghada Pedro RN, BSN
CDI Specialist
Available via [employer]
Please use your independent medical judgment in providing your response.
*Source: Kidney Disease: Improving Global Outcomes (KDIGO) 2012
--- NOTE | 2024-05-05 15:22 | PN.CDI ---
CDI
- -
CDI:
Physician Documentation Request
Admit Date: 04/30/24 18:13
Dear Doctor Rubin,
Please review the following and provide your response in the progress notes.
Clinical Indicators:
Pt admitted with acute pancreatitis.
05/01 lab result as noted
Laboratory Tests
05/01/24
19:36
Lactic Acid 2.4 H
Based on the above, could you clarify in the progress notes, the appropriate diagnosis, if significant, that supports the above abnormalities and additional evaluation, monitoring and/or treatment rendered:
Lactic acidosis
Insignificant abnormal lab value
Other
Use of terms such as suspected, likely, concern for, or probable (associated with a specific diagnosis that is being evaluated, monitored, or treated as if it exists) are acceptable and can be coded in the inpatient setting, when documented at the
time of discharge.
Thank you,
Ghada Pedro RN, BSN
CDI Specialist
Available via [employer]
Please use your independent medical judgment in providing your response.
--- NOTE | 2024-05-06 08:58 | CM ---
dc after CM left for day.
Spoke with pt and yesterday.
IMM reviewed yesterday Pt agreed with dc . IMM signed on chart.
Offered VN she declined need.
PLAN Home no needs
--- NOTE | 2024-05-06 19:07 | W.DCSUMMARY ---
Discharge Summary
Discharge Data
Date of Admission: 04/30/24
Date of Discharge: 05/05/24
-
Pending Results: Yes
Additional Pending Results:
Blood cultures 05/01/24: No growth at 4 days. Final report pending.
Hospital Course
Discharging Physician : Dr. Conklin, Dr. Hughes
Disposition : Home
Primary care physician : Ivan Biswas
Principal Discharge diagnosis : Acute pancreatitis, duodenitis, duodenal diverticula, leukocytosis
Chronic Discharge diagnosis : H/o peptic ulcer disease, daily alcohol use, sleep apnea, HLD, anxiety, obesity, hepatic steatosis, diverticulosis
Hospital Course : Presented to ED with abdominal pain and bilious emesis. She was diagnosed with acute pancreatitis. Initially, there was also concern for possible perforation or worsening of peptic ulcer disease on imaging and she was started on
antibiotics briefly. MRI confirmed no perforation. Her symptoms improved and her diet was advanced. She had no signs/symptoms of alcohol withdrawal and she was counseled on alcohol cessation. On day of discarge she was stable.
Important imaging findings :
Abdomen/pelvis CT 04/30
IMPRESSION:
Right upper quadrant inflammatory changes, as described. Probable pancreatitis. Cannot entirely exclude duodenitis.
3 rounded fluid attenuation structures in the third and fourth segments of the duodenum. When correlated with prior examination, these appear to represent duodenal diverticula as opposed to contained perforations.
Stable hepatomegaly with severe fatty infiltration.
Minor diverticulosis. No evidence of acute diverticulitis. No evidence of bowel obstruction.
Upper GI series 05/01
IMPRESSION:
There are 3 duodenal diverticula including a multilobular diverticulum at the proximal aspect of the third portion of the duodenum corresponding with the findings on the recent prior CT examination.
There is no duodenal perforation
Abdomen MRI 05/01
IMPRESSION:
Findings of likely acute interstitial pancreatitis with adjacent duodenal wall thickening, possible reactive duodenitis.
No evidence of cholelithiasis or choledocholithiasis. No intra or extra hepatic biliary ductal dilation.
Redemonstration of the gas and fluid-filled structures extending superiorly from the third and fourth portions of the duodenum, likely duodenal diverticulum.
Hepatomegaly with hepatic steatosis and focal fatty sparing along the falciform.
Procedure findings : N/A
Discharge Plan
-
Patient Disposition: Home (Routine Discharge)
Discharge Diagnosis/Procedures: Acute pancreatitis, history of peptic ulcer disease, daily alcohol use
Condition: Good
Diet: As tolerated and Low Fat
Activity: No restrictions and As tolerated
Driving Restrictions: As prior to admission
Others Tests: Get an ECHO as out patient
Instructions: Pancreatitis (DC), Low-fat diet
Referrals:
Ivan Biswas MD [Family Provider] -
Cosme Lyles MD [Active] -
Lamonte García MD, Resident [Family Practice Resident Year1] - in one week (Follow up with a local primary care doctor in 1 week. Call to schedule appointment.)
Additional Discharge Medication Instructions: You can take tramadol for pain if needed. This medication can make you constipated. You can use miralax daily to help with regular bowel movements.
Prescriptions:
New
tramadol 50 mg tablet
25 mg PO Q8H PRN (Reason: moderate pain) Qty: 20 0RF
Continued
rabeprazole [AcipHex] 20 MG tablet,delayed release (DR/EC)
20 mg PO DAILY
rosuvastatin 10 MG tablet
10 mg PO HS
ascorbic acid (vitamin C) [Vitamin C] 500 MG tablet
0.5 tab PO DAILY
lorazepam 1 MG tablet
1 mg PO TIDPRN PRN (Reason: sleep)
bupropion HCl 300 MG tablet extended release 24 hr
300 mg PO DAILY
cholecalciferol (vitamin D3) 2,000 UNITS tablet
2,000 units PO DAILY
biotin 1 MG capsule
1 mg PO DAILY
PreserVision AREDS-2 1 EACH capsule
1 ea PO DAILY
L.acidoph, paracasei,B. lactis 1 EACH capsule
1 ea PO DAILY
prednisolone acetate 1 % Drops,Suspension
1 drp LEFT EYE DAILY
dorzolamide-timolol 22.3-6.8 mg/mL Drops
1 drp BOTH EYES BID
Discharge Orders:
Discharge Patient (As Directed); Ordered 05/05/24
Ordered By: Kaykay Conklin
Discharge Date and Time
Discharge Date/Time: 05/05/24 18:27
Print Language: WELSH
== END 2024-05-05 18:27 | disposition home or self-care (01) | DRG 439 ==
LOC: 4 WEST ACU 18:13
PROVIDERS: Emergency Medicine; Internal Medicine; Registered Nurse; Student in an Organized Health Care Education/Training Program; ADMITTING PHYSICIAN Hospitalist; ATTENDING PHYSICIAN Hospitalist; EMERGENCY PHYSICIAN Emergency Medicine; FAMILY PHYSICIAN Internal Medicine; OTHER PHYSICIAN Internal Medicine Gastroenterology; OTHER PHYSICIAN Surgery
DX: K85.20 Alcohol induced acute pancreatitis without necrosis or infection (principal); E87.20 Acidosis, unspecified; R65.10 Systemic inflammatory response syndrome (SIRS) of non-infectious origin without acute organ dysfunction; G47.33 Obstructive sleep apnea (adult) (pediatric); J45.909 Unspecified asthma, uncomplicated; E78.00 Pure hypercholesterolemia, unspecified; K58.9 Irritable bowel syndrome, unspecified; K21.9 Gastro-esophageal reflux disease without esophagitis; F41.9 Anxiety disorder, unspecified; D72.825 Bandemia; K29.80 Duodenitis without bleeding; E87.6 Hypokalemia; K76.0 Fatty (change of) liver, not elsewhere classified; G43.909 Migraine, unspecified, not intractable, without status migrainosus; K57.10 Diverticulosis of small intestine without perforation or abscess without bleeding; D72.829 Elevated white blood cell count, unspecified; F10.10 Alcohol abuse, uncomplicated; E66.9 Obesity, unspecified; Z68.34 Body mass index [BMI] 34.0-34.9, adult; Z90.49 Acquired absence of other specified parts of digestive tract; Z88.1 Allergy status to other antibiotic agents; Z87.891 Personal history of nicotine dependence; Z87.11 Personal history of peptic ulcer disease; Z86.010 Personal history of colon polyps
CPT/HCPCS: 74177; 74183; 74240; 80048; 80053; 80076; 82550; 82787; 83605; 83690; 83735; 84100; 84478; 85025; 85027; 85610; 85730; 86803; 87040; 93005; 96361; 96374; 96375; 96376; 99285; A9575; Q9967

== ENCOUNTER → 2024-05-27 13:14 | Outpatient (REF) | payer MEDICARE, BC, SELFPAY | LOC: HWRAD 13:14 | PROVIDERS: ATTENDING PHYSICIAN Student in an Organized Health Care Education/Training Program | DX: J98.11 Atelectasis (principal) | CPT/HCPCS: 71046 ==

== ENCOUNTER → 2024-06-11 11:44 | Outpatient (REF) | payer MEDICARE, BC, SELFPAY ==
[2024-06-11 19:14] LABS: Urine Albumin Negative (Neg - Trace); Urine Bilirubin Negative (Negative); Urine Character Clear (Clear); Urine Color Yellow; Urine Glucose Negative (Negative); Urine Ketone Negative (Negative); Urine Leukocyte 1+ (Negative); Urine Nitrite Negative (Negative); Urine Occult Blood Negative (Negative); Urine Specific Gravity 1.015 (<1.030); Urine Urobilinogen Negative (Neg - 1+)
[2024-06-11 19:33] LABS: Urine Squamous Cell >30 /LPF (Few)
[2024-06-11 19:34] LABS: Urine Bacteria Few (Negative); Urine Red Blood Cell 0-2 /HPF (0-2)
== END ==
LOC: CLAB 11:44
PROVIDERS: ATTENDING PHYSICIAN Student in an Organized Health Care Education/Training Program
DX: N39.0 Urinary tract infection, site not specified (principal)
CPT/HCPCS: 81003; 81015; 87086

== ENCOUNTER 2025-06-11 12:00 | Emergency (ER) | payer MEDICARE, BC, SELFPAY ==
--- NOTE | 2025-06-11 13:06 | ED.GENMED ---
History of Present Illness
General
Chief Complaint: Musculo-Skeletal Complaint
Time Seen by Provider: 06/11/25 12:42
History of Present Illness
History of Present Illness:
75-year-old female with history of hyperlipidemia presents to the emergency department for evaluation of right wrist and elbow pain after a fall yesterday. 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 Denies distal paresthesias. Denies head
injury
Past History
Past History
ED Past Medical History: Asthma, Hypercholesterolemia, Psychiatric and Other (clarice, pud, ULCers)
ED Past Surgical History: Appendectomy, Gynecological (Tubel) and Other (hernia repair, 'tummy tuck')
Social History
Tobacco: Former smoker
Alcohol: Daily (Martini)
Drug: None
Personal:
Living: with family
Review of Systems
Review of Systems
Allergies reviewed?: Yes
All Other Systems: ROS reviewed and negative except as documented in HPI and ROS
Phy Exam
Physical Exam
Physical Exam:
GEN: Well appearing, NAD, WDWN
HEENT: Oral mucosa moist, no scleral icterus
Cardiac: Regular rate
Lung: No respiratory distress, no tachypnea
MSK: Significant swelling to the right distal forearm/wrist extending into the hand, exquisitely tender to palpation of the distal forearm, mild elbow tenderness
Skin: Good color, no pallor or jaundice, no rashes
Neuro: AO x3, moves all extremities freely
Psych: Calm, cooperative
Course
Orders/Labs/Results
Orders:
Orders
06/11/25 12:05
CR Elbow - Right Min 3 Views Urgent
Reason For Exam: injury
CR Wrist - Right Min 3 Views Urgent
Comment:
Reason For Exam: injury
06/11/25 13:30
Acetaminophen [Tylenol] 1,000 mg PO NOW STA
Ibuprofen [Motrin] 600 mg PO NOW STA
Vital Signs
Initial and Last Documented VS:
Initial Vital Signs
Temp Pulse Resp Pulse Ox
97.7 F 60 18 94
06/11/25 12:02 06/11/25 12:02 06/11/25 12:02 06/11/25 12:02
Last Documented Vital Signs
Temp Pulse Resp BP Pulse Ox
97.7 F 69 16 115/69 94
06/11/25 12:02 06/11/25 13:24 06/11/25 13:24 06/11/25 13:24 06/11/25 13:07
MDM/Problems Addressed
MDM/Problems Addressed:
X-rays of the right wrist independently interpreted by me show a mildly displaced fracture of the right distal radius, x-rays of the right foot independently interpreted by me are negative for acute fracture. Placed in universal wrist splint and
will recommend outpatient Ortho follow-up
*Pulse Oximetry
SaO2: 94
Patient hypoxic: no
*Critical Care Note
Total Time (30-74mins, 75-104mins- exclusive of procedures): Not Applicable
ED Attending Note
-
Portions of this chart may have been created with voice recognition software.� Occasional wrong word or��sound alike� substitutions may have occurred due to the inherent limitations of voice recognition software.
Discharge Plan
Departure
Patient Disposition: Home (Routine Discharge)
Date of Disposition: 06/11/25
Time of Disposition: 13:31
Patient with high blood pressure during this ER visit?: No
Discharge Problem:
Closed fracture of right distal radius
Instructions: Wrist Fracture (DC)
Prescriptions:
New
ibuprofen 600 mg tablet
600 mg PO Q8H PRN (Reason: Pain) Qty: 30 0RF
No Action
rabeprazole [AcipHex] 20 MG tablet,delayed release (DR/EC)
20 mg PO DAILY
rosuvastatin 10 MG tablet
10 mg PO HS
ascorbic acid (vitamin C) [Vitamin C] 500 MG tablet
0.5 tab PO DAILY
lorazepam 1 MG tablet
1 mg PO TIDPRN PRN (Reason: sleep)
bupropion HCl 300 MG tablet extended release 24 hr
300 mg PO DAILY
cholecalciferol (vitamin D3) 2,000 UNITS tablet
2,000 units PO DAILY
biotin 1 MG capsule
1 mg PO DAILY
PreserVision AREDS-2 1 EACH capsule
1 ea PO DAILY
L.acidoph,paracasei,B.animalis 1 EACH capsule
1 ea PO DAILY
prednisolone acetate 1 % Drops,Suspension
1 drp LEFT EYE DAILY
dorzolamide-timolol 22.3-6.8 mg/mL Drops
1 drp BOTH EYES BID
tramadol 50 mg tablet
25 mg PO Q8H PRN (Reason: moderate pain) Qty: 20 0RF
Referrals:
Baltazar Tejada MD [Active, Orthopedics]
Fabien Denton MD [Family Provider]
Activity Restrictions/Additional Instructions:
Ice and elevate to reduce pain and swelling
Use splint at all times except when showering until Orthopedic follow up
Interventions
Interventions:
*Risk Screen - Suicide Last Done: 06/11/25 12:04
*General Assessment Last Done: 06/11/25 12:04
*Neglect/Abuse Screening Last Done: 06/11/25 12:04
*ED COVID-19 Vaccine History Last Done: 06/11/25 12:04
*ED Influenza Vaccine History Last Done: 06/11/25 12:04
*Nursing Disposition Last Done: 06/11/25 14:00
ED-Musculoskeletal Assessment Last Done: 06/11/25 12:35
Discharge Date and Time
Discharge Date/Time: 06/11/25 14:17
Print Language: LATVIAN
[2025-06-11 13:24] VITALS: BP 115/69
[2025-06-11] MEDS: MOTRIN 600 MG PO (13:46)
[2025-06-11] MEDS: TYLENOL 1000 MG PO (13:46)
== END 2025-06-11 14:17 | disposition home or self-care (01) ==
LOC: EMR 12:00
PROVIDERS: EMERGENCY PHYSICIAN Emergency Medicine; FAMILY PHYSICIAN Orthopaedic Surgery
DX: S52.501A Unspecified fracture of the lower end of right radius, initial encounter for closed fracture (principal); W01.0XXA Fall on same level from slipping, tripping and stumbling without subsequent striking against object, initial encounter; Y93.01 Activity, walking, marching and hiking; E78.00 Pure hypercholesterolemia, unspecified; J45.909 Unspecified asthma, uncomplicated; G47.33 Obstructive sleep apnea (adult) (pediatric); Z87.11 Personal history of peptic ulcer disease; Z87.891 Personal history of nicotine dependence; Z90.49 Acquired absence of other specified parts of digestive tract
CPT/HCPCS: 99283; 29125; 73080; 73110